=== PATIENT | female | born 1955 | race Caucasian/White ===

== ENCOUNTER 2017-08-09 10:10 | Observation (INO) | payer OTHER ==
[~2017-08-09] VITALS: Ht 162.6 cm; Wt 65.6 kg
[2017-08-09] VITALS (10 sets, daily range): BP systolic 127–176; BP diastolic 65–87
[2017-08-09] MEDS ORDERED: RT-ALBUTEROL/IPRATROPIUM 3 ML (DUONEB) VIAL INH ONE (10:30)
[2017-08-09 10:52] LABS: BASOPHILS # (AUTO) 0.1 10^3/uL (0.0-0.1); BASOPHILS % (AUTO) 1 % (0-10); EOSINOPHILS # (AUTO) 0.3 10^3/uL (0.0-0.3); EOSINOPHILS % (AUTO) 2 % (0-10); HEMATOCRIT 42 % (35-52); HEMOGLOBIN 14.2 G/DL (11.5-16.0); LYMPHOCYTES # (AUTO) 2.7 X 10^3 (1.0-4.0); LYMPHOCYTES % (AUTO) 26 % (12-44); MEAN CORPUSCULAR HEMOGLOBIN 30 PG (25-34); MEAN CORPUSCULAR HGB CONC 34 G/DL (32-36); MEAN CORPUSCULAR VOLUME 88 FL (80-99); MEAN PLATELET VOLUME 11.2 FL (7.4-10.4); MONOCYTES # (AUTO) 0.9 X 10^3 (0.0-1.0); MONOCYTES % (AUTO) 9 % (0-12); NEUTROPHILS # (AUTO) 6.7 X 10^3 (1.8-7.8); NEUTROPHILS % (AUTO) 63 % (42-75); PLATELET COUNT 262 10^3/uL (130-400); RED BLOOD COUNT 4.81 10^6/uL (4.35-5.85); RED CELL DISTRIBUTION WIDTH 13.5 % (10.0-14.5); WHITE BLOOD COUNT 10.6 10^3/uL (4.3-11.0)
[2017-08-09] MEDS: NITROGLYCERIN 0.4 MG SL TABS BTL 25'S SL PRN ×5 (10:54→18:28)
--- NOTE | 2017-08-09 10:54 | Diagnostic Imaging Report ---
INDICATION: Chest pain Frontal chest obtained at 1048 hrs am. Heart and mediastinal silhouette are normal in appearance. The lungs are clear. There is no pneumothorax or pleural fluid. IMPRESSION: Negative chest. Dictated by: Dictated on workstation # [id number]
[2017-08-09 11:12] LABS: ALANINE AMINOTRANSFERASE 61 U/L (0-55); ALBUMIN 4.2 GM/DL (3.2-4.5); ALKALINE PHOSPHATASE 111 U/L (40-136); BILIRUBIN,TOTAL 0.5 MG/DL (0.1-1.0); BUN/CREATININE RATIO 11; CALCIUM 10.6 MG/DL (8.5-10.1); CARBON DIOXIDE 23 MMOL/L (21-32); CHLORIDE 105 MMOL/L (98-107); CREATININE SERUM 0.88 MG/DL (0.60-1.30); GFR ESTIMATED > 60; GLUCOSE 103 MG/DL (70-105); POTASSIUM 4.8 MMOL/L (3.6-5.0); SODIUM 138 MMOL/L (135-145); TOTAL PROTEIN 7.6 GM/DL (6.4-8.2)
[2017-08-09 11:19] LABS: MYOGLOBIN SERUM 48.5 NG/ML (10.0-92.0)
--- NOTE | 2017-08-09 11:42 | ED Chest Pain ---
General Chief Complaint: Chest Pain Stated Complaint: CP Nursing Triage Note: Pt to ED via [facility]. Pt c/o chest pressure and heaviness x2 days. Pt also c/o SOA Nursing Sepsis Screen: No Definite Risk Source: patient, old records Exam Limitations: no limitations History of Present Illness Date Seen by Provider: Aug 09, 2017 Time Seen by Provider: 10:11 Initial Comments This 62-year-old woman presents to the emergency room via EMS with complaints of chest pain described as a heaviness or pressure. She rates the pain as a 5 or 6. Pain has been fairly constant over the last 2 days. It does change a little bit with position and is worse when she is completely upright were completely flat. She has no documented history of cardiac workup at this facility. She reports a prior cardiac workup elsewhere about 7 years ago. Patient does have smoking as a risk factor. She sees Phyllis Hernandez at [facility]. She has a little shortness of breath and is noted to have a subtle wheeze. Aspirin 324 mg was administered by EMS. She is noted to have a history of esophagitis and gastritis diagnosed by EGD performed by Dr. Encarnacion. Allergies and Home Medications Allergies Coded Allergies: No Known Drug Allergies (Unverified , 09/08/15) Patient Home Medication List Home Medication List Reviewed: Yes Review of Systems Constitutional: no symptoms reported EENTM: No Symptoms Reported Respiratory: See HPI Cardiovascular: See HPI Gastrointestinal: No Symptoms Reported Genitourinary: No Symptoms Reported Musculoskeletal: no symptoms reported Skin: no symptoms reported Psychiatric/Neurological: No Symptoms Reported Endocrine: No Symptoms Reported Hematologic/Lymphatic: No Symptoms Reported Past Nnoabev-Czcpuu-Qifpgz Hx Patient Social History Alcohol Use: Denies Use Recreational Drug Use: No Smoking Status: Current Everyday Smoker Type Used: Cigarettes Recent Foreign Travel: No Contact w/Someone Who Travel: No Recent Infectious Disease Expo: No Recent Hopitalizations: No Seasonal Allergies Seasonal Allergies: No Past Medical History Surgeries: Yes Abdominal (EGD), Appendectomy, Gallbladder, Hysterectomy, Orthopedic, Tubal Ligation Respiratory: Yes COPD Cardiac: Yes High Cholesterol, Hypertension Neurological: No Genitourinary: No Gastrointestinal: Yes (erosive gastritis and esophagitis) Esophagitis Musculoskeletal: No Diabetes, Non-Insulin dep HEENT: No Hearing Impairment: Bilateral Hearing Aide Cancer: No Psychosocial: No Integumentary: No Blood Disorders: No Physical Exam Vital Signs Vital Signs - First Documented 08/09/17 10:18 Temp 97.4 Pulse 78 Resp 18 B/P (MAP) 171/91 (117) Pulse Ox 99 O2 Delivery Room Air Capillary Refill : Less Than 3 Seconds General Appearance: No Apparent Distress, WD/WN HEENT: PERRL/EOMI, Normal ENT Inspection, Other (bilateral hearing aid) Neck: Normal Inspection Respiratory: Chest Non Tender, No Accessory Muscle Use, No Respiratory Distress , Wheezing (subtle) Cardiovascular: Regular Rate, Rhythm, No Edema, No Murmur Gastrointestinal: Normal Bowel Sounds, Non Tender, Soft Extremity: Normal Capillary Refill, Normal Inspection, Non Tender, No Calf Tenderness, No Pedal Edema, Other (negative Negra) Neurologic/Psychiatric: Alert, Oriented x3, No Motor/Sensory Deficits, Normal Mood/Affect, city bailiff II-XII Norm as Tested Skin: Normal Color, Warm/Dry Progress/Results/Core Measures Lab Results Laboratory Tests Test 08/09/17 10:45 Range/Units White Blood Count 10.6 4.3-11.0 10^3/uL Red Blood Count 4.81 4.35-5.85 10^6/uL Hemoglobin 14.2 11.5-16.0 G/DL Hematocrit 42 35-52 % Mean Corpuscular Volume 88 80-99 FL Mean Corpuscular Hemoglobin 30 25-34 PG Mean Corpuscular Hemoglobin Concent 34 32-36 G/DL Red Cell Distribution Width 13.5 10.0-14.5 % Platelet Count 262 130-400 10^3/uL Mean Platelet Volume 11.2 H 7.4-10.4 FL Neutrophils (%) (Auto) 63 42-75 % Lymphocytes (%) (Auto) 26 12-44 % Monocytes (%) (Auto) 9 0-12 % Eosinophils (%) (Auto) 2 0-10 % Basophils (%) (Auto) 1 0-10 % Neutrophils # (Auto) 6.7 1.8-7.8 X 10^3 Lymphocytes # (Auto) 2.7 1.0-4.0 X 10^3 Monocytes # (Auto) 0.9 0.0-1.0 X 10^3 Eosinophils # (Auto) 0.3 0.0-0.3 10^3/uL Basophils # (Auto) 0.1 0.0-0.1 10^3/uL Prothrombin Time 13.0 12.2-14.7 SEC INR Comment 1.0 0.8-1.4 Activated Partial Thromboplast Time 31 24-35 SEC Sodium Level 138 135-145 MMOL/L Potassium Level 4.8 3.6-5.0 MMOL/L Chloride Level 105 98-107 MMOL/L Carbon Dioxide Level 23 21-32 MMOL/L Anion Gap 10 5-14 MMOL/L Blood Urea Nitrogen 10 7-18 MG/DL Creatinine 0.88 0.60-1.30 MG/DL Estimat Glomerular Filtration Rate > 60 BUN/Creatinine Ratio 11 Glucose Level 103 70-105 MG/DL Calcium Level 10.6 H 8.5-10.1 MG/DL Magnesium Level 2.0 1.8-2.4 MG/DL Total Bilirubin 0.5 0.1-1.0 MG/DL Aspartate Amino Transf (AST/SGOT) 65 H 5-34 U/L Alanine Aminotransferase (ALT/SGPT) 61 H 0-55 U/L Alkaline Phosphatase 111 40-136 U/L Myoglobin 48.5 10.0-92.0 NG/ML Troponin I < 0.30 <0.30 NG/ML Total Protein 7.6 6.4-8.2 GM/DL Albumin 4.2 3.2-4.5 GM/DL My Orders Orders - RUTH LOERA MD Cbc With Automated Diff (08/09/17 10:23) Magnesium (08/09/17 10:23) Chest 1 View, Ap/Pa Only (08/09/17 10:23) Cardiac Profile 1 (08/09/17 10:23) Comprehensive Metabolic Panel (08/09/17 10:23) Myoglobin Serum (08/09/17 10:23) Protime With Inr (08/09/17 10:23) Partial Thromboplastin Time (08/09/17 10:23) O2 (08/09/17 10:23) Monitor-Rhythm Ecg Trace Only (08/09/17 10:23) Lipid Panel (08/10/17 06:00) Nitroglycerin 0.4 Mg Btl 25's (Nitrostat (08/09/17 10:30) Saline Lock/Iv-Start (08/09/17 10:23) Ekg Tracing (08/09/17 10:23) Albuterol/Ipra Inhalation Soln (Duoneb I (08/09/17 10:30) Svn Sm Volume Nebulizer Rt-Rfs (08/09/17 10:25) Medications Given in ED Current Medications Medications Dose Ordered Sig/Gary Route Start Time Stop Time Status Last Admin Dose Admin Albuterol/ Ipratropium 3 ml ONCE ONCE INH 08/09/17 10:30 08/09/17 10:31 DC 08/09/17 10:57 3 ML Nitroglycerin 0.4 mg UD PRN SL 08/09/17 10:30 08/09/17 11:41 DC 08/09/17 11:41 0.4 MG Vital Signs/I&O 08/09/17 08/09/17 08/09/17 10:18 10:48 10:59 Temp 97.4 Pulse 78 Resp 18 B/P (MAP) 171/91 (117) Pulse Ox 99 93 O2 Delivery Room Air Room Air Room Air Blood Pressure Mean: 117 Progress Note : Time: 11:21 Progress Note Patient reports improvement in her chest pain with both DuoNeb treatment and nitroglycerin. Pain is now rated as 1 or 2. Initial ECG Impression Date: Aug 09, 2017 Initial ECG Impression Time: 10:13 Initial ECG Rate: 81 Initial ECG Rhythm: Normal Sinus Initial ECG Intervals: Normal Initial ECG Impression: Normal Comment Normal sinus rhythm with no ST elevation or depression. No abnormal intervals or axis deviation. Diagonstic Imaging: Xray Plain Films/CT/US/NM/MRI: chest Comments Chest x-ray viewed by me and report reviewed. See report below: NAME: FELICITA ROBERTSON [facility] REC#: [id number] PT STATUS: REG ER : 1955 PHYSICIAN: RUTH LOERA MD ADMIT DATE: 08/09/17/ER Signed Date of Exam: 08/09/17 CHEST 1 VIEW, AP/PA ONLY INDICATION: Chest pain Frontal chest obtained at 1048 hrs am. Heart and mediastinal silhouette are normal in appearance. The lungs are clear. There is no pneumothorax or pleural fluid. IMPRESSION: Negative chest. Dictated by: Dictated on workstation # [id number] Dict: 08/09/17 1051 Trans: 08/09/17 1124 Interpreted by: AQUILINO CHOW MD Electronically signed by: AQUILINO CHOW MD 08/09/17 1124 Departure Communication (Admissions) Time/Spoke to Admitting Phy: 11:30 Dr. Pastor Time/Spoke to Consulting Phy: 11:30 Dr. Dow Impression Primary Impression: Chest pain Qualified Codes: R07.9 - Chest pain, unspecified Additional Impression: Bronchospasm Disposition: 01 HOME, SELF-CARE Condition: Improved Admissions Decision to Admit Reason: Admit from ER (General) Decision to Admit/Date: Aug 09, 2017 Time/Decision to Admit Time: 11:30 Departure-Patient Inst. Referrals: [facility] (PCP[facility]Family) Primary Care Physician RUTH LOERA MD Aug 09, 2017 11:42
--- OUTSIDE RECORDS SUMMARY | 2017-08-09 12:12 | XMS REPORT ---
Author Author VIVI GRANADOS [facility] e[employer] Address Unknown Phone Unavailable Care Team Providers Care Warehouse Traffic Supervisor Name Role Phone VIVI GRANADOS CP Unavailable Allergies No Known Allergies Problems Problem Type Condition Code Onset Dates Condition Status Problem Multiple sclerosis G35 Active Problem Marijuana abuse F12.10 Active Problem Hypercholesterolemia E78.0 Active Problem Mucopurulent chronic bronchitis J41.1 Active Problem Chronic obstructive pulmonary disease, unspecified COPD type J44.9 Active Problem Type 2 diabetes mellitus with hyperglycemia E11.65 Active Problem Hypertension due to endocrine disorder I15.2 Active Problem Panic attacks F41.0 Active Problem Irritable bowel syndrome with diarrhea K58.0 Active Medications No Known Medications Results No Known Results Summary Purpose eClinicalWorks Submission
--- OUTSIDE RECORDS SUMMARY | 2017-08-09 12:12 | XMS REPORT ---
Author Author VIVI GRANADOS [facility] eClinicalWorks Address Unknown Phone Unavailable Care Team Providers Care Silk Printer Name Role Phone VIVI GRANADOS Unavailable Allergies No Known Allergies Problems Problem Type Condition Code Onset Dates Condition Status Problem Marijuana abuse F12.10 Active Problem Hypercholesterolemia [...]
--- OUTSIDE RECORDS SUMMARY | 2017-08-09 12:12 | XMS REPORT ---
Author Author VIVI GRANADOS [facility] eClinicalWorks Address Unknown Phone Unavailable Care Team Providers Care Bar Pilot Name Role Phone VIVI GRANADOS Unavailable Allergies [...]
--- OUTSIDE RECORDS SUMMARY | 2017-08-09 12:12 | XMS REPORT ---
Author Author VIVI GRANADOS [facility] eClinicalWorks Address Unknown Phone Unavailable Care Team Providers Care Merchandiser Seasonal Name Role Phone VIVI GRANADOS Unavailable Allergies [...] bowel syndrome with diarrhea K58.0 Active Medications Medication Code System Code Instructions Start Date End Date Status Dosage ProAir HFA [facility] [id number] 90 mcg/Actuation Inhalation 4 times a day May 16, 2011 inhale 1 - 2 puffs by inhalation route every 6 hours as needed Results No Known Results Summary Purpose eClinicalWorks Submission
--- OUTSIDE RECORDS SUMMARY | 2017-08-09 12:12 | XMS REPORT ---
Author Author VIVI GRANADOS [facility] eClinicalWorks Address Unknown Phone Unavailable Care Team Providers Care Director Software Name Role Phone VIVI GRANADOS CP Unavailable [...]
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
--- OUTSIDE RECORDS SUMMARY | 2017-08-09 12:12 | XMS REPORT ---
Author Author VIVI GRANADOS Organization [facility] Address [address] [place] [address] Care Team Providers Care Tv Host Name Role Phone GRANADOS VIVI Unavailable PROBLEMS Type Condition ICD9-CM Code [id number] Code Onset Dates Condition Status SNOMED Code Problem Hypertension due to endocrine disorder I15.2 Active 772461575 Problem Marijuana abuse F12.10 Active 03313083 Problem Chronic obstructive pulmonary disease, unspecified COPD type J44.9 Active 68497115 Problem Hypercholesterolemia E78.0 Active 18111923 Problem Irritable bowel syndrome with diarrhea K58.0 Active 409986496 Problem Type 2 diabetes mellitus with hyperglycemia E11.65 Active 563506154583929 Problem Mucopurulent chronic bronchitis J41.1 Active 09001576 Problem Panic attacks F41.0 Active 561005882 ALLERGIES Unknown Allergies SOCIAL HISTORY No smoking Hx information available PLAN OF CARE VITAL SIGNS MEDICATIONS Medication Instructions Dosage Frequency Start Date End Date Duration Status ProAir HFA 90 mcg/Actuation inhale 1 - 2 puffs by inhalation route every 6 hours as needed 6h Apr, 90 days Active RESULTS No Results PROCEDURES No Known procedures IMMUNIZATIONS No Known Immunizations
--- OUTSIDE RECORDS SUMMARY | 2017-08-09 12:12 | XMS REPORT ---
Author Author VIVI GRANADOS Organization [facility] Address [address] [place] [address] Care Team Providers Care Marketing Representative Name Role Phone NILA GRANADOSE Unavailable PROBLEMS Type Condition ICD9-CM Code HOR81-YT Code Onset Dates Condition Status SNOMED Code Problem Hypertension due to endocrine disorder I15.2 Active 980289521 Problem Marijuana abuse F12.10 Active 33224701 Problem Chronic obstructive pulmonary disease, unspecified COPD type J44.9 Active 54361947 Problem Hypercholesterolemia E78.0 Active 88124846 Problem Irritable bowel syndrome with diarrhea K58.0 Active 113163994 Problem Type 2 diabetes mellitus with hyperglycemia E11.65 Active 286660303180336 Problem Mucopurulent chronic bronchitis J41.1 Active 77038580 Problem Panic attacks F41.0 Active 540386012 ALLERGIES Unknown Allergies SOCIAL HISTORY No smoking Hx information available PLAN OF CARE VITAL SIGNS MEDICATIONS Medication Instructions Dosage Frequency Start Date End Date Duration Status MetFORMIN HCl ER 500 MG Orally twice a day with food 2 tablet August, Active Test strips Test Strips DX E11.65- Glucocard Expression 2 times a day- 3 times weekly. test blood sugar Dec, Active Blood Glucose Meter 1 glucometer Glucocard Expression 2 times a day test blood sugar 12h Dec, Active RESULTS No Results PROCEDURES No Known procedures IMMUNIZATIONS No Known Immunizations
--- OUTSIDE RECORDS SUMMARY | 2017-08-09 12:13 | XMS REPORT ---
Author Author VIVI GRANADOS [facility] Address [address] [place] [address] Care Team Providers Care Reliner Name Role Phone VIVI GRANADOS Unavailable PROBLEMS Type Condition ICD9-CM Code HLT34-MQ Code Onset Dates Condition Status SNOMED Code Problem Marijuana abuse F12.10 Active 08605775 Problem Pure hypercholesterolemia E78.00 Active 767521882 Problem Chronic obstructive pulmonary disease, unspecified COPD type J44.9 Active 95706074 Problem Mucopurulent chronic bronchitis J41.1 Active 45634745 Problem Type 2 diabetes mellitus with hyperglycemia E11.65 Active 186790004113655 Problem Hypertension due to endocrine disorder I15.2 Active 647741170 Problem Panic attacks F41.0 Active 673382100 Problem Irritable bowel syndrome with diarrhea K58.0 Active 989268840 ALLERGIES Unknown Allergies SOCIAL HISTORY No smoking Hx information available PLAN OF CARE VITAL SIGNS MEDICATIONS Unknown Medications RESULTS No Results PROCEDURES No Known procedures IMMUNIZATIONS No Known Immunizations
--- OUTSIDE RECORDS SUMMARY | 2017-08-09 12:13 | XMS REPORT ---
Author Author VIVI GRANADOS Organization [facility] Address [address] [place] [address] Care Team Providers Care Time Study Statistician Name Role Phone VIVI GRANADOS Unavailable PROBLEMS Type Condition ICD9-CM Code ELS31-MV Code Onset Dates Condition Status SNOMED Code Problem Panic attacks F41.0 Active 474123554 Problem Pure hypercholesterolemia E78.00 Active 494268124 Problem Chronic obstructive pulmonary disease, unspecified COPD type J44.9 Active 23006300 Problem Hypertension due to endocrine disorder I15.2 Active 268992991 Problem Irritable bowel syndrome with diarrhea K58.0 Active 153147023 Problem Marijuana abuse F12.10 Active 63930037 Problem Type 2 diabetes mellitus with hyperglycemia E11.65 Active 813945872502938 Problem Mucopurulent chronic bronchitis J41.1 Active 28162911 ALLERGIES No Information SOCIAL HISTORY Never Assessed PLAN OF CARE VITAL SIGNS MEDICATIONS Medication Instructions Dosage Frequency Start Date End Date Duration Status Glucocard Expression Test - In Vitro 2 times a day test blood sugar 12h 10 May, 2016 30 days Active RESULTS No Results PROCEDURES No Known procedures IMMUNIZATIONS No Known Immunizations MEDICAL (GENERAL) HISTORY [...]
--- OUTSIDE RECORDS SUMMARY | 2017-08-09 12:13 | XMS REPORT ---
Author Author VIVI Simms Organization [facility] Address [address] [place] [address] Care Team Providers Care Electrical Drafter Name Role Phone pearlFina VIVI Unavailable PROBLEMS Type Condition ICD9-CM Code MHM67-HZ Code Onset Dates Condition Status SNOMED Code Problem Pure hypercholesterolemia E78.00 Active 106775953 Problem Irritable bowel syndrome with diarrhea K58.0 Active 610216964 Problem Vitamin D deficiency E55.9 Active 29069761 Problem Chronic fatigue R53.82 Active 80188046 Problem Overweight (BMI 25.0-29.9) E66.3 Active 926556553 Problem Panic attacks F41.0 Active 695282801 Problem Type 2 diabetes mellitus with hyperglycemia E11.65 Active 891277847866091 Problem Chronic obstructive pulmonary disease, unspecified COPD type J44.9 Active 28871495 Problem Hypertension due to endocrine disorder I15.2 Active 439262804 ALLERGIES No Information ENCOUNTERS Encounter Location Date Diagnosis [place] [id number] [address] Jun, Chronic obstructive pulmonary disease, unspecified COPD type J44.9 [place] [address] [place] [id number] [place] [address] May, [place] [address] [address] May, Type 2 diabetes mellitus with hyperglycemia E11.65 [place] [address] [address] May, Type 2 diabetes mellitus with hyperglycemia E11.65 ; Hypertension due to endocrine disorder I15.2 ; Pure hypercholesterolemia E78.00 ; Irritable bowel syndrome with diarrhea K58.0 ; Panic attacks F41.0 ; Hair loss L65.9 ; Chronic fatigue R53.82 ; Overweight (BMI 25.0-29.9) E66.3 and Chronic obstructive pulmonary disease, unspecified COPD type J44.9 [facility] [address] [id number] [place] [address] Nov, Chronic obstructive pulmonary disease, unspecified COPD type J44.9 [facility] [address] [place] [id number] [address] Nov, [facility] [address] [id number] [place] [address] Oct, [facility] [address] [place] [id number] [place] [address] Oct, [facility] [address] [place] [id number] [place] [address] Sep, Chronic obstructive pulmonary disease, unspecified COPD type J44.9 [facility] [address] [id number] [place] [address] Jul, Vaginal discharge N89.8 [facility] [address] [id number] [place] [address] Jul, Chronic obstructive pulmonary disease, unspecified COPD type J44.9 [facility] [address] [place] [id number] [address] Jun, [facility] [address] [place] [id number] [place] [address] 10 May, 2016 Type 2 diabetes mellitus with hyperglycemia E11.65 [facility] [address] [place] [address] 08 May, 2016 Type 2 diabetes mellitus with hyperglycemia E11.65 ; Irritable bowel syndrome with diarrhea K58.0 ; Hypertension due to endocrine disorder I15.2 ; Hypercholesterolemia E78.0 ; Panic attacks F41.0 and Chronic obstructive pulmonary disease, unspecified COPD type J44.9 [facility] [address] [address] Apr, [facility] [address] [address] Mar, [facility] [address] [address] [id number] [place] [address] Mar, [facility] [address] [place] [id number] [place] [address] 488[address] Feb, Panic attacks F41.0 ; Chronic obstructive pulmonary disease , unspecified COPD type J44.9 ; Hypertension due to endocrine disorder I15.2 ; Hypercholesterolemia E78.0 ; Type 2 diabetes mellitus with hyperglycemia E11.65 and Rash and nonspecific skin eruption R21 [facility] [address] [place] [id number] [place] [address] Feb, [facility] [address] [place] [id number] [place] [address]- 6035 Dec, [facility] [address] [id number] [place] [address] 2720 Dec, [facility] [address] [id number] [place] [address] 78[address]- 3647 Dec, [facility] [address] [place] [id number] [place] [address] Nov, [facility] [address] [place] [id number] [place] [address] Nov, Type 2 diabetes mellitus with hyperglycemia E11.65 ; Hypertension due to endocrine disorder I15.2 ; Chronic obstructive pulmonary disease, unspecified COPD type J44.9 ; Panic attacks F41.0 ; Hypercholesterolemia E78.0 ; Irritable bowel syndrome with diarrhea K58.0 and Encounter for immunization Z23 [facility] [address] [place] [id number] [place] [address] Nov, [facility] [address] [place] [id number] [place] [address] Oct, [facility] [address] [place] [id number] [place] [address]99[address] Oct, Type 2 diabetes mellitus with hyperglycemia E11.65 ; Hypertension due to endocrine disorder I15.2 ; Hypercholesterolemia E78.0 and Chronic obstructive pulmonary disease, unspecified COPD type J44.9 [facility] [address] [place] [id number] [place] [address] Oct, [facility] [address] [place] [id number] [place] [address] 9367 Sep, [facility] [address] [place] [id number] [place] [address] 6759 Sep, Type 2 diabetes mellitus with hyperglycemia E11.65 ; Hypertension due to endocrine disorder I15.2 ; Multiple sclerosis G35 ; Chronic obstructive pulmonary disease, unspecified COPD type J44.9 ; Marijuana abuse F12.10 and Hypercholesterolemia E78.0 [place] [address] [address] [id number] [place] [address] August, [place] [address] [place] [id number] [place] [address] August, [facility] [address] [place] [id number] [place] [address] 10075- 0209 August, Hypercholesterolemia E78.0 [place] [address] [place] [id number] [place] [address] August, Type 2 diabetes mellitus with hyperglycemia E11.65 ; Hypertension due to endocrine disorder I15.2 ; Mucopurulent chronic bronchitis J41.1 ; Multiple sclerosis G35 and Marijuana abuse F12.10 [place] [address] [place] [address]16- [address] Nov, Shoulder pain, right 719.41 and Upper back pain on right side 724.5 [place] [address] [place] [id number] [place] [address] Jul, [facility] [address] [place] [id number] [place] [address]- 8399 Jul, [place] [address] [place] [id number] [place] [address] Dec, [facility] [place] [facility] [address] [id number] [place] [address] Dec, [facility] [place] [facility] [address] [id number] [place] [address]- 3[address] Nov, [facility] [place] [facility] [address] [id number] [place] [address]- 477[address] Nov, [facility] [place] [facility] [address] [id number] [place] [address]- 6656 Oct, [facility] [place] [facility] [address] [id number] [place] [address]- 3418 Oct, [facility] [place] [facility] [address] [id number] [place] [address]- 7898 Oct, [facility] [place] [facility] [address] [id number] [place] [address]- 6[address] Oct, [facility] [place] [facility] [address] [id number] [place] [address]- 1267 Oct, [facility] [place] [facility] [address] [id number] [place] [address]- 5567 Oct, [facility] [place] [facility] [address] [id number] [place] [address]- 1[address] Sep, [facility] [place] [facility] [address] [id number] [place] [address]- 4086 Sep, [facility] [place] [facility] [address] [id number] [address] Sep, [facility] [place] [facility] [address] [id number] [place] [address]- 224[address] Sep, [facility] [place] [facility] [address] [id number] [place] [address]- 18[address] Jan, [facility] [place] [facility] [address] [id number] [place] [address]- 6[address] Jan, [facility] [place] [facility] [address] [id number] [place] [address]- 2871 Jan, [facility] [address] [id number] [place] [address]- 6[address] Dec, [facility] [place] [facility] [address] [id number] [place] [address]- 9466 Dec, [facility] [address] [id number] [place] [address]- 3973 August, [facility] [place] [facility] [address] [id number] [place] [address]- 5932 Apr, [facility] [address] [id number] [place] [address]- 2643 Apr, [facility] [address] [id number] [place] [address]- 7535 Nov, [facility] [address] [id number] [place] [address]- 1489 Sep, [facility] [place] [facility] [address] [id number] [place] [address]- 2476 Sep, [facility] [place] [facility] [address] [id number] [place] [address]- 3596 Sep, [facility] [address] [id number] [place] [address]- 2194 Sep, [facility] [place] [facility] [address] [id number] [place] [address]- 4050 Jul, [facility] [place] [facility] [address] [id number] [place] [address]- 9937 Jul, [facility] [place] [facility] [address] [id number] [place] [address]- 4175 Jul, [facility] [place] [facility] [address] [id number] [place] [address]- 6470 Jun, [facility] [place] [facility] [address] [id number] [place] [address]- 0697 Jun, [facility] [address] [facility] [id number] [address] Jun, [facility] [address] [facility] [id number] [address]- [address] Jun, [facility] [address] [facility] [id number] [address]- 38[address] May, [facility] [address] [facility] [id number] [address]- [address] Apr, [facility] [address] [facility] [id number] [address]- [address] Apr, [facility] [address] [facility] [id number] [address]- 39[address] Apr, [facility] [address] [address]- [address] Mar, [facility] [address] [address]- [address] Jan, [facility] [address] [place] [id number] [address] Jan, [facility] [address] [place] [address] [id number] [address] Jan, IMMUNIZATIONS No Known Immunizations SOCIAL HISTORY Never Assessed REASON FOR VISIT Refill request PLAN OF CARE VITAL SIGNS MEDICATIONS Medication Instructions Dosage Frequency Start Date End Date Duration Status Lisinopril 10 MG Orally Once a day 1 tablet 24h 30 days Active RESULTS No Results PROCEDURES [...]
--- OUTSIDE RECORDS SUMMARY | 2017-08-09 12:13 | XMS REPORT ---
Author Author VIVI GRANADOS [facility] Address [address] [place] [address] Care Team Providers Care Tailor Men'S Ready To Wear Name Role Phone VIVI GRANADOS Unavailable PROBLEMS Type Condition ICD9-CM Code OBE02-FH Code Onset Dates Condition Status SNOMED Code Problem Panic attacks F41.0 Active 326832246 Problem Pure hypercholesterolemia E78.00 Active 196759519 Problem Chronic obstructive pulmonary disease, unspecified COPD type J44.9 Active 61385337 Problem Hypertension due to endocrine disorder I15.2 Active 357131154 Problem Irritable bowel syndrome with diarrhea K58.0 Active 711422757 Problem Marijuana abuse F12.10 Active 21682401 Problem Type 2 diabetes mellitus with hyperglycemia E11.65 Active 026880662896089 Problem Mucopurulent chronic bronchitis J41.1 Active 06117643 ALLERGIES Unknown Allergies SOCIAL HISTORY No smoking Hx information available PLAN OF CARE VITAL SIGNS MEDICATIONS Unknown Medications RESULTS No Results PROCEDURES No Known procedures IMMUNIZATIONS No Known Immunizations
--- OUTSIDE RECORDS SUMMARY | 2017-08-09 12:13 | XMS REPORT ---
Author Author VIVI Simms Organization [facility] Address [address] [place] [address] Care Team Providers Care Fingernail Sculptor Name Role Phone pearlFina VIVI Unavailable PROBLEMS Type Condition ICD9-CM Code ZRY65-XY Code Onset Dates Condition Status SNOMED Code Problem Pure hypercholesterolemia E78.00 Active 904716712 Problem Irritable bowel syndrome with diarrhea K58.0 Active 189823729 Problem Vitamin D deficiency E55.9 Active 80577909 Problem Chronic fatigue R53.82 Active 85721277 Problem Overweight (BMI 25.0-29.9) E66.3 Active 918781464 Problem Panic attacks F41.0 Active 414858380 Problem Type 2 diabetes mellitus with hyperglycemia E11.65 Active [id number] Problem Chronic obstructive pulmonary disease, unspecified COPD type J44.9 Active 85115819 Problem Hypertension due to endocrine disorder I15.2 Active 200634047 ALLERGIES No Information ENCOUNTERS Encounter Location Date Diagnosis [place] [id number] [address] Jun, Chronic obstructive pulmonary disease, unspecified COPD type J44.9 [place] [address] [place] [id number] [place] [address]342- 1086 May, [place] [address] [address] May, Type 2 diabetes mellitus with hyperglycemia E11.65 [place] [address] [address] May, Type 2 diabetes mellitus with hyperglycemia E11.65 ; Hypertension due to endocrine disorder I15.2 ; Pure hypercholesterolemia E78.00 ; Irritable bowel syndrome with diarrhea K58.0 ; Panic attacks F41.0 ; Hair loss L65.9 ; Chronic fatigue R53.82 ; Overweight (BMI 25.0-29.9) E66.3 and Chronic obstructive pulmonary disease, unspecified COPD type J44.9 [facility] [address] [id number] [place] [address]45- 3186 Nov, Chronic obstructive pulmonary disease, unspecified COPD type J44.9 [facility] [id number] [address] Nov, [facility] [address] [id number] [place] [address] 56676- 3779 Oct, [facility] [address] [place] [id number] [place] [address] 62657- 7112 Oct, [facility] [address] [place] [id number] [place] [address] 51862- 8388 Sep, Chronic obstructive pulmonary disease, unspecified COPD type J44.9 [facility] [address] [place] [id number] [place] [address] 60475- 9586 Jul, Vaginal discharge N89.8 [facility] [address] [place] [id number] [place] [address] 33844- 5455 Jul, Chronic obstructive pulmonary disease, unspecified COPD type J44.9 [facility] [address] [place] [address] [id number] [address] Jun, [facility] [address] [place] [id number] [place] [address] 36427- 7500 10 May, 2016 Type 2 diabetes mellitus with hyperglycemia E11.65 [facility] [id number] [place] [address] 90991- 5018 08 May, 2016 Type 2 diabetes mellitus with hyperglycemia E11.65 ; Irritable bowel syndrome with diarrhea K58.0 ; Hypertension due to endocrine disorder I15.2 ; Hypercholesterolemia E78.0 ; Panic attacks F41.0 and Chronic obstructive pulmonary disease, unspecified COPD type J44.9 [facility] [address] [address] Apr, [facility] [address] [address] Mar, [facility] [address] [place] [id number] [place] [address] 25474- 9589 Mar, [facility] [address] [place] [address] [id number] [place] [address] 00741- 3060 Feb, Panic attacks F41.0 ; Chronic obstructive pulmonary disease , unspecified COPD type J44.9 ; Hypertension due to endocrine disorder I15.2 ; Hypercholesterolemia E78.0 ; Type 2 diabetes mellitus with hyperglycemia E11.65 and Rash and nonspecific skin eruption R21 [facility] [address] [place] [id number] [place] [address] 23915- 0017 Feb, [facility] [address] [place] [id number] [place] [address] 25595- 8607 Dec, [facility] [address] [place] [id number] [place] [address] 41171- 1011 Dec, [facility] [address] [place] [id number] [place] [address] 19371- 3030 Dec, [facility] [address] [place] [id number] [place] [address] 46971- 2028 Nov, [facility] [address] [place] [id number] [place] [address] 39896- 3550 Nov, Type 2 diabetes mellitus with hyperglycemia E11.65 ; Hypertension due to endocrine disorder I15.2 ; Chronic obstructive pulmonary disease, unspecified COPD type J44.9 ; Panic attacks F41.0 ; Hypercholesterolemia E78.0 ; Irritable bowel syndrome with diarrhea K58.0 and Encounter for immunization Z23 [facility] [address] [place] [id number] [place] [address] 18328- 3621 Nov, [facility] [address] [place] [id number] [place] [address] 65250- 6658 Oct, [facility] [address] [place] [id number] [place] [address] 95447- 7580 Oct, Type 2 diabetes mellitus with hyperglycemia E11.65 ; Hypertension due to endocrine disorder I15.2 ; Hypercholesterolemia E78.0 and Chronic obstructive pulmonary disease, unspecified COPD type J44.9 [facility] [address] [place] [id number] [place] [address] 26747- 8465 Oct, [facility] [address] [place] [id number] [place] [address] 94196- 4280 Sep, [facility] [address] [place] [id number] [place] [address] 24212- 8270 Sep, Type 2 diabetes mellitus with hyperglycemia E11.65 ; Hypertension due to endocrine disorder I15.2 ; Multiple sclerosis G35 ; Chronic obstructive pulmonary disease, unspecified COPD type J44.9 ; Marijuana abuse F12.10 and Hypercholesterolemia E78.0 [place] [address] [place] [id number] [place] [address] 99265- 7057 August, [place] [address] [place] [id number] [place] [address] 88607- 0139 August, [facility] [address] [place] [id number] [place] [address] 10381- 1872 August, Hypercholesterolemia E78.0 [place] [address] [place] [id number] [place] [address] 27148- 6021 August, Type 2 diabetes mellitus with hyperglycemia E11.65 ; Hypertension due to endocrine disorder I15.2 ; Mucopurulent chronic bronchitis J41.1 ; Multiple sclerosis G35 and Marijuana abuse F12.10 [place] [address] [place] [address] 01887- 9156 Nov, Shoulder pain, right 719.41 and Upper back pain on right side 724.5 [place] [address] [place] [id number] [place] [address] 52583- 5657 Jul, [facility] [address] [place] [id number] [place] [address] 44428- 8318 Jul, [place] [address] [place] [id number] [place] [address] 07327- 2561 Dec, [facility] [place] [facility] [address] [id number] [place] [address]- 7540 Dec, [facility] [place] [facility] [address] [id number] [place] [address]- 9214 Nov, [facility] [place] [facility] [address] [id number] [place] [address]- 7647 Nov, [facility] [place] [facility] [address] [id number] [place] [address]- 0603 Oct, [facility] [place] [facility] [address] [id number] [place] [address]- 9818 Oct, [facility] [place] [facility] [address] [id number] [place] [address]- 6884 Oct, [facility] [place] [facility] [address] [id number] [place] [address]- 1058 Oct, [facility] [place] [facility] [address] [id number] [place] [address]- 4823 Oct, [facility] [place] [facility] [address] [id number] [place] [address]- 0938 Oct, [facility] [place] [facility] [address] [id number] [place] [address]- 4920 Sep, [facility] [place] [facility] [address] [id number] [place] [address]- 2572 Sep, [facility] [place] [facility] [address] [id number] [address]- 2138 Sep, [facility] [place] [facility] [address] [id number] [place] [address]- 7197 Sep, [facility] [place] [facility] [address] [id number] [place] [address]- 1360 Jan, [facility] [place] [facility] [address] [id number] [place] [address]- 8369 Jan, [facility] [place] [facility] [address] [id number] [place] [address]- 7892 Jan, [facility] [address] [id number] [place] [address]- 1284 Dec, [facility] [place] [facility] [address] [id number] [place] [address]- 0786 Dec, [facility] [address] [id number] [place] [address]- 7478 August, [facility] [place] [facility] [address] [id number] [place] [address]- 7566 Apr, [facility] [address] [id number] [place] [address]- 7583 Apr, [facility] [address] [id number] [place] [address]- 5232 Nov, [facility] [address] [id number] [place] [address]- 4437 Sep, [facility] [place] [facility] [address] [id number] [place] [address]- 6203 Sep, [facility] [place] [facility] [address] [id number] [place] [address]- 5553 Sep, [facility] [address] [id number] [place] [address]- 5517 Sep, [facility] [place] [facility] [address] [id number] [place] [address]- 5195 Jul, [facility] [place] [facility] [address] [id number] [place] [address]- 5147 Jul, [facility] [place] [facility] [address] [id number] [place] [address]- 0597 Jul, [facility] [place] [facility] [address] [id number] [place] [address]- 4222 Jun, [facility] [place] [facility] [address] [id number] [place] [address]- 3787 Jun, [facility] [address] [facility] [id number] [address]- 8702 Jun, [facility] [address] [facility] [id number] [address]- 5185 Jun, [facility] [address] [facility] [id number] [address]- 5956 May, [facility] [address] [address]- 8755 Apr, [facility] [address] [facility] [id number] [address]- 9834 Apr, [facility] [address] [address]- 0913 Apr, [facility] [address] [address]- 9104 Mar, [facility] [address] [address]- 5162 Jan, [facility] [address] [place] [id number] [address]- 5632 Jan, [facility] [address] [place] [id number] [address]- [address]117 Jan, IMMUNIZATIONS No Known Immunizations SOCIAL HISTORY Never Assessed REASON FOR VISIT 1 yr f/u DM Ed PLAN OF CARE VITAL SIGNS MEDICATIONS Unknown [...]
--- OUTSIDE RECORDS SUMMARY | 2017-08-09 12:13 | XMS REPORT ---
Author Author VIVI GRANADOS Organization [facility] Address [address] [place] [address] Care Team Providers Care Milling Machine Tender Name Role Phone GRANADOS VIVI Unavailable PROBLEMS Type Condition ICD9-CM Code NOZ57-PS Code Onset Dates Condition Status SNOMED Code Problem Hypertension due to endocrine disorder I15.2 Active 460709577 Problem Marijuana abuse F12.10 Active 11856465 Problem Chronic obstructive pulmonary disease, unspecified COPD type J44.9 Active 65961714 Problem Hypercholesterolemia E78.0 Active 33806189 Problem Irritable bowel syndrome with diarrhea K58.0 Active 167721052 Problem Type 2 diabetes mellitus with hyperglycemia E11.65 Active 347400096110660 Problem Mucopurulent chronic bronchitis J41.1 Active 71218584 Problem Panic attacks F41.0 Active 649155782 ALLERGIES Unknown Allergies SOCIAL HISTORY No smoking [...]
--- OUTSIDE RECORDS SUMMARY | 2017-08-09 12:13 | XMS REPORT ---
Author Author VIVI GRANADOS [facility] Address [address] [place] [address] Care Team Providers Care Fiberglass Boat Builder Name Role Phone VIVI GRANADOS Unavailable PROBLEMS Type Condition ICD9-CM Code OMZ25-YZ Code Onset Dates Condition Status SNOMED Code Problem Panic attacks F41.0 Active 010727327 Problem Pure hypercholesterolemia E78.00 Active 201491704 Problem Chronic obstructive pulmonary disease, unspecified COPD type J44.9 Active 88389006 Problem Hypertension due to endocrine disorder I15.2 Active 989671252 Problem Irritable bowel syndrome with diarrhea K58.0 Active 733414396 Problem Marijuana abuse F12.10 Active 65736882 Problem Type 2 diabetes mellitus with hyperglycemia E11.65 Active 496785133157125 Problem Mucopurulent chronic bronchitis J41.1 Active 44327851 ALLERGIES No Information SOCIAL HISTORY Never Assessed PLAN OF CARE VITAL SIGNS MEDICATIONS Unknown [...]
--- OUTSIDE RECORDS SUMMARY | 2017-08-09 12:13 | XMS REPORT ---
Author Author VIVI GRANADOS [facility] e[employer] Address Unknown Phone Unavailable Care Team Providers Care General Scrap Worker Name Role Phone VIVI GRANADOS CP Unavailable Allergies, Adverse Reactions, Alerts Substance Reaction Event Type N.K.D.A. Info Not Available Non Drug Allergy Problems Problem Type Condition Code Onset Dates Condition Status Assessment Hypertension due to endocrine disorder I15.2 Active Problem Marijuana abuse F12.10 Active Assessment Type 2 diabetes mellitus with hyperglycemia E11.65 Active Problem Hypercholesterolemia E78.0 Active Problem Mucopurulent chronic bronchitis J41.1 Active Problem Chronic obstructive pulmonary disease, unspecified COPD type J44.9 Active Problem Type 2 diabetes mellitus with hyperglycemia E11.65 Active Problem Hypertension due to endocrine disorder I15.2 Active Problem Panic attacks F41.0 Active Problem Irritable bowel syndrome with diarrhea K58.0 Active Assessment Irritable bowel syndrome with diarrhea K58.0 Active Assessment Hypercholesterolemia E78.0 Active Assessment Panic attacks F41.0 Active Assessment Encounter for immunization Z23 Active Assessment Chronic obstructive pulmonary disease, unspecified COPD type J44.9 Active Medications Medication Code System Code Instructions Start Date End Date Status Dosage Albuterol Sulfate HFA [facility] [address]-45 108 (90 Base) MCG/ACT Inhalation every 4 hrs September 02, 2015 2 puffs as needed ProAir HFA [facility] [address]-89 90 mcg/Actuation May 16, 2011 inhale 1 - 2 puffs by inhalation route every 6 hours as needed Clonidine HCl [facility] [address]-61 0.1 MG Orally twice a day Dec 14, 2015 1 tablet MetFORMIN HCl ER [facility] [address]-10 500 MG Orally twice a day September 02, 2015 1 tablet with evening meal Lisinopril [facility] [address]-18 10 mg Orally Once a day September 02, 2015 1 tablet Lipitor [facility] [address]-64 10 mg Orally Once a day September 03, 2015 1 tablet Procedures Procedure Coding System Code Date Office Visit, Est Pt., Level 4 CPT-4 04795 Dec 14, 2015 PPV23 (PNEUMOVAX) CPT-4 22412 Dec 14, 2015 GLYCATED HEMOGLOBIN TEST CPT-4 14604 Dec 14, 2015 SINGLE IMMUNIZATION ADMIN CPT-4 38788 Dec 14, 2015 Vital Signs Date/Time: Dec 14, 2015 Cardiac Monitoring Heart Rate 96 bpm Weight 140.1 lbs Height 61 in BMI 26.47 Index Blood Pressure Diastolic 92 mmHg Blood Pressure Systolic 156 mmHg Results No Known Results Immunizations Vaccine Administration Date PPV23 (PNEUMOVAX) Dec 14, 2015 Summary Purpose eClinicalWorks Submission
--- OUTSIDE RECORDS SUMMARY | 2017-08-09 12:13 | XMS REPORT ---
Author Author VIVI GRANADOS Organization [facility] Address [address] [place] [address] Care Team Providers Care Pharmacy Buyer Name Role Phone TAVIA GRANADOSNETTE Unavailable PROBLEMS Type Condition ICD9-CM Code ZPR80-PT Code Onset Dates Condition Status SNOMED Code Problem Hypertension due to endocrine disorder I15.2 Active 436457760 Problem Marijuana abuse F12.10 Active 08152895 Problem Chronic obstructive pulmonary disease, unspecified COPD type J44.9 Active 36831081 Problem Hypercholesterolemia E78.0 Active 68893711 Problem Irritable bowel syndrome with diarrhea K58.0 Active 849395922 Problem Type 2 diabetes mellitus with hyperglycemia E11.65 Active 390630554544656 Problem Mucopurulent chronic bronchitis J41.1 Active 82098288 Problem Panic attacks F41.0 Active 375194843 ALLERGIES Unknown Allergies SOCIAL HISTORY No smoking Hx information available PLAN OF CARE VITAL SIGNS MEDICATIONS Medication Instructions Dosage Frequency Start Date End Date Duration Status Lisinopril 10 mg Orally Once a day 1 tablet 24h August, 30 days Active Clonidine HCl 0.1 MG Orally twice a day 1 tablet 12h Nov, 30 day(s) Active RESULTS No Results PROCEDURES No Known procedures IMMUNIZATIONS No Known Immunizations
--- OUTSIDE RECORDS SUMMARY | 2017-08-09 12:13 | XMS REPORT ---
Author Author VIVI GRANADOS [facility] e[employer] Address Unknown Phone Unavailable Care Team Providers Care Purification Director Name Role Phone VIVI GRANADOS Unavailable Allergies, Adverse Reactions, Alerts Substance Reaction Event Type N.K.D.A. Info Not Available Non Drug Allergy Problems Problem Type Condition Code Onset Dates Condition Status Assessment Type 2 diabetes mellitus with hyperglycemia E11.65 Active Problem Multiple sclerosis G35 Active Problem Marijuana abuse F12.10 Active Problem Hypercholesterolemia E78.0 Active Problem Mucopurulent chronic bronchitis J41.1 Active Problem Chronic obstructive pulmonary disease, unspecified COPD type J44.9 Active Problem Type 2 diabetes mellitus with hyperglycemia E11.65 Active Problem Hypertension due to endocrine disorder I15.2 Active Problem Panic attacks F41.0 Active Problem Irritable bowel syndrome with diarrhea K58.0 Active Assessment Chronic obstructive pulmonary disease, unspecified COPD type J44.9 Active Assessment Hypercholesterolemia E78.0 Active Assessment Hypertension due to endocrine disorder I15.2 Active Medications Medication Code System Code Instructions Start Date End Date Status Dosage Lipitor [facility] [address]-34 10 mg Orally Once a day September 03, 2015 1 tablet ProAir HFA [facility] [address]-60 90 mcg/Actuation May 16, 2011 inhale 1 - 2 puffs by inhalation route every 6 hours as needed MetFORMIN HCl ER [facility] [address]-07 500 MG Orally twice a day September 02, 2015 1 tablet with evening meal Albuterol Sulfate HFA [facility] [address]-76 108 (90 Base) MCG/ACT Inhalation every 4 hrs September 02, 2015 2 puffs as needed Lisinopril [facility] [address]-78 10 mg Orally Once a day September 02, 2015 1 tablet Procedures Procedure Coding System Code Date Office Visit, Est Pt., Level 4 CPT-4 64432 November 11, 2015 Vital Signs Date/Time: November 11, 2015 Cardiac Monitoring Heart Rate 96 bpm Weight 140.3 lbs Height 61 in Blood Pressure Diastolic 90 mmHg Blood Pressure Systolic 148 mmHg Results No Known Results Summary Purpose eClinicalWorks Submission
--- OUTSIDE RECORDS SUMMARY | 2017-08-09 12:14 | XMS REPORT | Continuity of Care Document ---
Author Author [facility] Address Unknown Phone Unavailable Allergies Active Description Code Type Severity Reaction Onset Reported/Identified Relationship to Patient Clinical Status Yes No Known Drug Allergies [id number] Drug Allergy Unknown N/A 09/08/2015 Medications There is no data. Problems Date Dx Coded Attending Type Code Diagnosis Diagnosed By 12/17/2010 CELSA LONGORIA DO 300.00 ANXIETY STATE UNSPECIFIED 12/17/2010 CELSA LONGORIA DO 401.9 UNSPECIFIED ESSENTIAL HYPERTENSION 12/17/2010 CELSA LONGORIA DO 790.29 OTHER ABNORMAL GLUCOSE 12/17/2010 CELSA LONGORIA DO V69.2 HIGH-RISK SEXUAL BEHAVIOR 12/17/2010 JEANIE FORMAN CLIFTON K 300.00 ANXIETY STATE UNSPECIFIED 12/17/2010 JEANIE FORMAN CLIFTON K 401.9 UNSPECIFIED ESSENTIAL HYPERTENSION 12/17/2010 WARE DO CLIFTON K 790.29 OTHER ABNORMAL GLUCOSE 12/17/2010 JEANIE FORMAN CLIFTON K V69.2 HIGH-RISK SEXUAL BEHAVIOR 12/17/2010 TRISTAN CHAPMAN MD 300.00 ANXIETY STATE UNSPECIFIED 12/17/2010 TRISTAN CHAPMAN MD 401.9 UNSPECIFIED ESSENTIAL HYPERTENSION 12/17/2010 TRISTAN CHAPMAN MD 790.29 OTHER ABNORMAL GLUCOSE 12/17/2010 TRISTAN CHAPMAN MD V69.2 HIGH-RISK SEXUAL BEHAVIOR 12/17/2010 JEANIE FORMAN CLIFTON K 300.00 ANXIETY STATE UNSPECIFIED 12/17/2010 WARE DO CLIFTON K 401.9 UNSPECIFIED ESSENTIAL HYPERTENSION 12/17/2010 WARE DO CLIFTON K 790.29 OTHER ABNORMAL GLUCOSE 12/17/2010 WARE DO CLIFTON K V69.2 HIGH-RISK SEXUAL BEHAVIOR 02/14/2011 CELSA LONGORIA DO 296.30 MO DEPRESSIVE RECURRENT UNSPECIFIED 02/14/2011 JEANIE FORMAN CLIFTON K 296.30 MO DEPRESSIVE RECURRENT UNSPECIFIED 02/14/2011 TRISTAN CHAPMAN MD 296.30 MO DEPRESSIVE RECURRENT UNSPECIFIED 02/14/2011 CLIFTON WARE DO 296.30 MO DEPRESSIVE RECURRENT UNSPECIFIED 03/25/2011 CELSA LONGORIA DO 307.47 SI DYSSOMNIA NOS 03/25/2011 CLIFTON WARE DO 307.47 SI DYSSOMNIA NOS 03/25/2011 TRISTAN CHAPMAN MD 307.47 SI DYSSOMNIA NOS 03/25/2011 CLIFTON WARE DO 307.47 SI DYSSOMNIA NOS 05/16/2011 CELSA LONGORIA DO 496 CHRONIC AIRWAY OBSTRUCTION NOT ELSEWHERE CLASSIFIED 05/16/2011 CLIFTON WARE DO 496 CHRONIC AIRWAY OBSTRUCTION NOT ELSEWHERE CLASSIFIED 05/16/2011 TRISTAN CHAPMAN MD 496 CHRONIC AIRWAY OBSTRUCTION NOT ELSEWHERE CLASSIFIED 05/16/2011 CLIFTON WARE DO 496 CHRONIC AIRWAY OBSTRUCTION NOT ELSEWHERE CLASSIFIED 07/15/2011 CELSA LONGORIA DO V58.69 MEDICATION HIGH RISK 07/15/2011 CLIFTON WARE DO V58.69 MEDICATION HIGH RISK 07/15/2011 TRISTAN CHAPMAN MD V58.69 MEDICATION HIGH RISK 07/15/2011 CLIFTON WARE DO V58.69 MEDICATION HIGH RISK 08/17/2011 CELSA LONGORIA DO 309.81 AN PTSD 08/17/2011 CLIFTON WARE DO 309.81 AN PTSD 08/17/2011 TRISTAN CHAPMAN MD 309.81 AN PTSD 08/17/2011 CLIFTON WARE DO 309.81 AN PTSD 01/18/2013 CLIFTON WARE DO 616.10 VAGINITIS AND VULVOVAGINITIS UNSPECIFIED 01/18/2013 TRISTAN CHAPMAN MD 616.10 VAGINITIS AND VULVOVAGINITIS UNSPECIFIED 01/18/2013 CLIFTON WARE DO 616.10 VAGINITIS AND VULVOVAGINITIS UNSPECIFIED 10/17/2013 TRISTAN CHAPMAN MD 340 MULTIPLE SCLEROSIS 10/17/2013 CLIFTON WARE DO 340 MULTIPLE SCLEROSIS 09/02/2015 TRISTAN CHAPMAN MD, Ot 331.9 CEREB DEGENERATION NOS 09/02/2015 TRISTAN CHAPMAN MD, Ot 340 MULTIPLE SCLEROSIS 09/02/2015 TRISTAN CHAPMAN MD Ot 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 09/02/2015 TRISTAN CHAPMAN MD, Ot 784.0 HEADACHE 09/08/2015 TRISTAN CHAPMAN MD Ot 331.9 CEREB DEGENERATION NOS 09/08/2015 ARI LESLIE, TRISTAN [place] Ot 340 MULTIPLE SCLEROSIS 09/08/2015 TRISTAN CHAPMAN MD Ot 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 09/08/2015 TRISTAN CHAPMAN MD Ot 784.0 HEADACHE 09/09/2015 DARWIN VIVI Jane TAR DISTRIBUTOR OPERATOR Ot G35 MULTIPLE SCLEROSIS 09/09/2015 GRANADOSVIVI TAR DISTRIBUTOR OPERATOR Ot G35 MULTIPLE SCLEROSIS 10/20/2015 GRANADOSVIVI TAR DISTRIBUTOR OPERATOR Ot G35 MULTIPLE SCLEROSIS Procedures Code [place] [address] CULTURE UROGENITAL 01/18/2013 93706 GC/CHLAM PROBE ([facility]) 01/18/2013 74879 TRICHOMONAS (IN-HOUSE) 01/18/2013 69109 ROUTINE VENIPUNCTURE 10/17/2013 [id number] GFR CALC (RESULT ONLY) 10/17/2013 13397 [facility] 10/17/2013 76835 ROUTINE VENIPUNCTURE 10/22/2013 62251 MRI BRAIN W/O CONTRAST 10/22/2013 Neurology Rupinder Pardo 10/22/2013 74454 [facility] 10/22/2013 [id number] GFR CALC (RESULT ONLY) 10/22/2013 Results Test Result Range CBC With Differential/Platelet - 06/01/16 14:00 WBC 12.0 x10E3/uL 3.4-10.8 RBC 4.83 x10E6/uL 3.77-5.28 Hemoglobin 13.9 g/dL 11.1-15.9 Hematocrit 42.9 % 34.0-46.6 MCV 89 fL 79-97 MCH 28.8 pg 26.6-33.0 MCHC 32.4 g/dL 31.5-35.7 RDW 13.9 % 12.3-15.4 Platelets 262 x10E3/uL 150-379 Neutrophils 67 % Lymphs 25 % Monocytes 6 % Eos 2 % Basos 0 % Neutrophils (Absolute) 8.0 x10E3/uL 1.4-7.0 Lymphs (Absolute) 3.0 x10E3/uL 0.7-3.1 Monocytes(Absolute) 0.7 x10E3/uL 0.1-0.9 Eos (Absolute) 0.2 x10E3/uL 0.0-0.4 Baso (Absolute) 0.0 x10E3/uL 0.0-0.2 Immature Granulocytes 0 % Immature Grans (Abs) 0.0 x10E3/uL 0.0-0.1 Comp. Metabolic Panel (14) - 06/01/16 14:00 Glucose, Serum 117 mg/dL 65-99 BUN 27 mg/dL 8-27 Creatinine, Serum 0.98 mg/dL 0.57-1.00 eGFR If NonAfricn Am 62 mL/min/1.73 >59 eGFR If Africn Am 72 mL/min/1.73 >59 BUN/Creatinine Ratio 28 11-26 Sodium, Serum 137 mmol/L 134-144 Potassium, Serum 4.5 mmol/L 3.5-5.2 Chloride, Serum 98 mmol/L 96-106 Carbon Dioxide, Total 24 mmol/L 18-29 Calcium, Serum 10.1 mg/dL 8.7-10.3 Protein, Total, Serum 6.7 g/dL 6.0-8.5 Albumin, Serum 4.3 g/dL 3.6-4.8 Globulin, Total 2.4 g/dL 1.5-4.5 A/G Ratio 1.8 1.1-2.5 Bilirubin, Total 0.3 mg/dL 0.0-1.2 Alkaline Phosphatase, S 101 IU/L 39-117 AST (SGOT) 38 IU/L 0-40 ALT (SGPT) 34 IU/L 0-32 Lipid Panel - 06/01/16 14:00 Cholesterol, Total 157 mg/dL 100-199 Triglycerides 178 mg/dL 0-149 HDL Cholesterol 56 mg/dL >39 VLDL Cholesterol Emanuel 36 mg/dL 5-40 LDL Cholesterol Calc 65 mg/dL 0-99 Pap Lb, rfx HPV ASCU - 08/17/16 00:00 DIAGNOSIS: Comment Specimen adequacy: Comment Clinician provided ICD10: Comment Performed by: Comment . . Note: Comment . Comment Genital Culture, Routine - 08/17/16 15:43 Genital Culture, Routine Note VITAMIN D, 25-H - 06/08/17 11:06 VITAMIN D,25-OH,TOTAL,IA 12 ng/mL 30-100 CMP - 06/09/17 08:04 GLUCOSE 129 mg/dL 65-99 UREA NITROGEN (BUN) 12 mg/dL 7-25 CREATININE 0.93 mg/dL 0.50-0.99 eGFR NON-AFR. KENYAN 66 mL/min/1.73m2 > OR=60 eGFR 76 mL/min/1.73m2 > OR=60 BUN/CREATININE RATIO NOT APPLICABLE (calc) 6-22 SODIUM 142 mmol/L 135-146 POTASSIUM 4.5 mmol/L 3.5-5.3 CHLORIDE 105 mmol/L 98-110 CARBON DIOXIDE 28 mmol/L 20-31 CALCIUM 10.1 mg/dL 8.6-10.4 PROTEIN, TOTAL 6.9 g/dL 6.1-8.1 ALBUMIN 4.3 g/dL 3.6-5.1 GLOBULIN 2.6 g/dL (calc) 1.9-3.7 ALBUMIN/GLOBULIN RATIO 1.7 (calc) 1.0-2.5 BILIRUBIN, TOTAL 0.5 mg/dL 0.2-1.2 ALKALINE PHOSPHATASE 100 U/L 33-130 AST 52 U/L 10-35 ALT 57 U/L 6-29 Encounters ACCT No. Visit Date/Time Discharge Status Pt. Type Provider Facility Loc./Unit Complaint [id number] 10/22/2013 10:50:00 10/22/2013 23:59:59 CLS Outpatient CLIFTON WARE DO [id number] 10/17/2013 10:51:00 10/17/2013 23:59:59 CLS Outpatient TRISTAN CHAPMAN MD [id number] 01/18/2013 09:40:00 01/18/2013 23:59:59 CLS Outpatient CLIFTON WARE DO [id number] 12/16/2011 13:35:00 12/16/2011 23:59:59 CLS Outpatient CELSA LONGORIA DO [id number] 08/20/2016 10:07:00 Document Registration [id number] 08/22/2016 11:08:00 Document Registration [id number] 06/02/2016 08:41:00 Document Registration [id number] 07/12/2017 15:00:00 07/12/2017 23:59:59 [id number] 06/09/2017 08:20:00 Document Registration [id number] 06/08/2017 10:00:00 Document Registration [id number] 09/08/2015 10:40:00 09/08/2015 23:59:59 CLS Outpatient VIVI GRANADOS [facility] [id number] 11/19/2013 15:45:00 11/19/2013 23:59:59 CLS Outpatient ARI LESLIE, TRISTAN [place] [facility]
[2017-08-09] MEDS ORDERED: morphine INJ 4 MG/ML 1 ML (VIAL/SYRINGE) IV PRN (12:45)
[2017-08-09] MEDS ORDERED: ATOR10TA PO (13:29)
[2017-08-09] MEDS ORDERED: GLIM1TAB PO (13:29)
[2017-08-09] MEDS ORDERED: LISI10TA2 PO (13:29)
[2017-08-09] MEDS ORDERED: ERGO50006 PO (13:29)
[2017-08-09] MEDS ORDERED: RT-ALBUINH INH (13:29)
[2017-08-09] MEDS ORDERED: COLE1TAB PO (13:29)
[2017-08-09] MEDS ORDERED: METF500T8 PO (13:29)
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
[2017-08-09] MEDS ORDERED: RT-ALBUTEROL/IPRATROPIUM 3 ML (DUONEB) VIAL INH PRN (13:30)
[2017-08-09] MEDS ORDERED: NFBIOT1000 PO (13:46)
[2017-08-09] MEDS ORDERED: ASPI-808 PO (13:46)
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
[2017-08-09] MEDS ORDERED: NON-FORMULARY MEDICATION 1 EA EA (Albuterol Sulfate (Proair Hfa) 2 PUFF) INH PRN (14:15)
[2017-08-09] MEDS: FAMOTIDINE 20 MG (PEPCID) TABLET PO SCH ×2 (14:46→20:30)
[2017-08-09] MEDS: inSUlin ASPART (NovoLOG) 1 UNIT/0.01 ML (CHARGE PER UNIT) SC SCH ×2 (16:26→21:15)
[2017-08-09 17:06] LABS: CREATINE KINASE 49 U/L (29-168)
[2017-08-09] MEDS: RT-ALBUTEROL/IPRATROPIUM 3 ML (DUONEB) VIAL INH SCH (20:49)
[2017-08-09] MEDS ORDERED: metFORMIN XR 500 MG (GLUCOPHAGE XR) TAB PO SCH (21:00)
[2017-08-10] VITALS (7 sets, daily range): BP systolic 115–174; BP diastolic 59–114
[2017-08-10] MEDS: inSUlin ASPART (NovoLOG) 1 UNIT/0.01 ML (CHARGE PER UNIT) SC SCH ×2 (05:16→11:42)
[2017-08-10 06:32] LABS: HEPATITIS C ANTIBODY C Non-Reactive (Non-Reactive)
[2017-08-10] MEDS: RT-ALBUTEROL/IPRATROPIUM 3 ML (DUONEB) VIAL INH SCH (07:01)
[2017-08-10 07:20] LABS: ALBUMIN 3.9 GM/DL (3.2-4.5); BILIRUBIN,TOTAL 0.5 MG/DL (0.1-1.0); CALCIUM 10.3 MG/DL (8.5-10.1); CREATININE SERUM 0.95 MG/DL (0.60-1.30); POTASSIUM 4.4 MMOL/L (3.6-5.0); TOTAL PROTEIN 6.9 GM/DL (6.4-8.2)
[2017-08-10] MEDS ORDERED: REGADENOSON 0.4 MG/5 ML SYR (LEXISCAN) IV ONE ×2 (08:26→09:00)
[2017-08-10] MEDS ORDERED: NON-FORMULARY MEDICATION 1 EA EA (Lisinopril 10 MG) PO SCH (09:00)
[2017-08-10] MEDS ORDERED: ASPIRIN E.C. 325 MG (ECOTRIN) TABLET PO SCH (09:00)
[2017-08-10] MEDS ORDERED: GLIMEPIRIDE 1 MG (AMARYL) TAB PO SCH (09:00)
[2017-08-10] MEDS ORDERED: lisINopril 10 MG (PRINIVIL) TABLET PO SCH (09:00)
--- NOTE | 2017-08-10 09:28 | Cardiology Progress Note ---
Cardiology SOAP Progress Note Subjective: No further chest pain. Objective: I&O/Vital Signs 08/10/17 08/10/17 08/10/17 08/10/17 07:00 07:01 08:00 08:37 Pulse 98 103 B/P (MAP) 174/79 (110) Pulse Ox 96 96 O2 Delivery Room Air Room Air 08/10/17 08/10/17 08/10/17 08/10/17 08:50 09:00 12:00 12:30 Temp 97.1 Pulse 131 88 Resp 20 B/P (MAP) 171/114 (133) 115/65 (82) Pulse Ox 96 100 O2 Delivery Room Air Room Air Room Air 08/10/17 13:06 Pulse 92 08/10/17 00:00 Intake Total 350 ml Output Total 450 ml Balance -100 ml Weight (Pounds): 144 Weight (Ounces): 9.0 Weight (Calculated Kilograms): [id number] Constitutional: No appears stated age; AAO x 3; No apparent distress, No PERRL , No well-developed, No well-nourished, No other Respiratory: No accessory muscle use, No respiratory distress, No chest tender , No chest expansion is symmetric; chest is bilaterally symmetric; No lungs clear to percussion; lungs clear to auscultation; No crackles, No rhonchi, No rales, No stridor, No wheezing, No pleural rub, No other Cardiovascular: regular rate-rhythm; No irregularly irregular, No extra beats, No parasternal heave is noted, No JVD, No edema, No bradycardia, No tachycardia , No point of maximal impulse, No cardiac thrills are palpable; S1 and S2; No gallop/S3, No gallop/S4, No diastolic murmur, No systolic murmur, No friction rub, No click, No other Gastrointestional: No tender, No soft, No round, No distended, No pulsatile mass, No organomegaly, No guarding, No rebound, No tenderness, No hernia, No mass, No audible bowel sounds, No abnormal bowel sounds, No abdominal bruits, No spleenomegaly, No other Extremities: No normal range of motion, No non-tender, No normal inspection, No pedal edema, No calf tenderness, No normal capillary refill, No pelvis stable , No calf tenderness, No inflammation, No pedal edema, No slow capillary refill , No swelling, No other, No abrasion, No clubbing, No cyanosis, No ecchymosis, No laceration, No no lower extremity edema bilateral, No significant edema, No tenderness, No wound Neurologic/Psychiatric: No clinical nurse specialist II-XII nml as tested, No no motor/sensory deficits; alert, normal mood/affect, oriented x 3; No abnormal cerebellar tests , No abnormal clinical nurse specialist II-XII, No abnormal gait, No aphasia, No EOM palsy, No facial droop, No motor weakness, No sensory deficit, No depressed affect, No disoriented x 3, No other, No grossly intact, No power is 5/5 both on sides Skin: No normal color, No warm/dry, No cyanosis, No cool, No diaphoresis, No damp, No ecchymosis, No jaundice, No mottled, No pallor, No rash, No tattoos/ piercings, No ulcerations, No rash on exposed areas, No ulcerations on exposed areas, No other Results/Procedures: Labs Laboratory Tests 08/09/17 16:45: Total Creatine Kinase 49, Troponin I < 0.30 08/09/17 20:14: Glucometer 170H 08/10/17 05:16: Glucometer 153H 08/10/17 05:28: Sodium Level 137, Potassium Level 4.4, Chloride Level 105, Carbon Dioxide Level 22, Anion Gap 10, Blood Urea Nitrogen 14, Creatinine 0.95, Estimat Glomerular Filtration Rate 60, BUN/Creatinine Ratio 15, Glucose Level 137H, Calcium Level 10.3H, Total Bilirubin 0.5, Aspartate Amino Transf (AST/SGOT) 37H, Alanine Aminotransferase (ALT/SGPT) 48, Alkaline Phosphatase 126, Total Protein 6.9, Albumin 3.9, Triglycerides Level 119, Cholesterol Level 118, LDL Cholesterol Direct 53, VLDL Cholesterol 24, HDL Cholesterol 42 08/10/17 10:43: Glucometer 219H A/P: Assessment/Dx: Chest pain, diabetes, hyperlipidemia, hypertension, active smoking Plan: Chest pain, negative first set of cardiac enzymes. negative EKG. ACS ruled out with negative serial troponin. Nuclear stress test did not show any significant perfusion defects. Echocardiogram. diabetes - metformin. hyperlipidemia - continue atorvastatin. hypertension - Lisinopril. active smoking - smoking cessation strongly recommended. Okay to discharge and to follow-up with cardiology in a month. Thank you for your consultation. Please call me if you have any questions. Dalila Dwo MD, FACP, FACC, FSCAI, FHRS, CCDS Interventional Cardiology Cardiac Electrophysiology Vascular Medicine and Endovascular Interventions Clinical Quality Measures AMI/AHF: ASA po Prior to arrival: Yes Darryl DOW MD Aug 10, 2017 9:28 am
[2017-08-10] MEDS ORDERED: ASPI325T32 PO (11:13)
[2017-08-10] MEDS: FAMOTIDINE 20 MG (PEPCID) TABLET PO SCH (11:42)
--- NOTE | 2017-08-10 16:19 | Cardiology Stress Test Report ---
Stress Test Report Type of NM Stress Test: Test Type: LEXISCAN 0.4MG/5ML Date of Procedure/Referring: Date of Procedure: Aug 10, 2017 PCP Marissa Pastor MD Admitting Physician [facility] - [facility] Of Indications: Chest pain Baseline Heart Rate: 102 Baseline Blood Pressure: Blood Pressure Systolic: 174 Blood Pressure Diastolic: 79 Baseline EKG: Baseline EKG: Sinus rhythm Summary: The patient was brought to the stress lab after informed consent was taken. Stress test was performed according to the Lexiscan protocol. 0.4 mg of IV Lexiscan was given. Low-grade exercise was performed. Baseline EKG showed sinus rhythm at 102 BPM. Blood pressure was 174/79 mmHg. Patient did not have any chest pain, EKG changes or arrhythmias noted during the stress test. 10.32 mCi of Myoview was given for rest imaging and 31.6 mCi of Myoview was given for stress imaging. Transient ischemic dilatation score is 0.68. Ejection fraction 76 percent. With no wall motion abnormalities. Normal perfusion during rest and stress imaging. Conclusion: Pharmacological stress test was negative for ischemia. Normal LV function with no wall motion abnormalities. Poor blood pressure control. Normal myocardial perfusion imaging during rest and stress. Darryl MORAN MD Aug 10, 2017 16:19
--- NOTE | 2017-08-11 09:36 | Discharge Summary ---
Diagnosis/Chief Complaint Date of Admission Aug 09, 2017 at 11:38 Date of Discharge Aug 10, 2017 at 16:25 Admission Diagnosis Admission Diagnosis (1) Chest pain Status: Acute Qualifiers: Qualified Codes: R07.9 - Chest pain, unspecified (2) Elevated LFTs Status: Acute (3) Hypercalcemia Status: Acute (4) Diabetes mellitus, type 2 Status: Chronic (5) Hyperlipidemia Status: Chronic (6) Hypertension Status: Chronic Qualifiers: Qualified Codes: I10 - Essential (primary) hypertension (7) Hearing impairment Status: Chronic Discharge Diagnosis (1) Chest pain Assessment & Plan: Initial troponin negative, Cardiology consulted, underwent stress test which was negative for ischemia. (2) Elevated LFTs Status: Acute Assessment & Plan: Hepatitis panel negative. Improved on second day with holding statin and colestiol. On d/c continued only statin, recommend recheck LFTs and consider liver US, she does note distant history of heavy alcohol use. (3) Hypercalcemia Status: Acute Assessment & Plan: Persistent on day 2, PTH pending at d/c (4) Diabetes mellitus, type 2 Status: Chronic Assessment & Plan: Resume home medications, diabetic diet Qualifiers: (5) Hyperlipidemia Status: Chronic Assessment & Plan: Held home medications with LFT elevation (6) Hypertension Status: Chronic Assessment & Plan: Resume home medications Qualifiers: Qualified Codes: I10 - Essential (primary) hypertension (7) Hearing impairment Status: Chronic Assessment & Plan: Hearing aids in place but batteries dying, she will try to get someone to bring her some. Qualifiers: Chief Complaint/HPI Chief Complaint/HPI 62 yo female presented to ER with 2 days of pain across back of shoulders and neck and heaviness in mid low chest. She reports she ignored it at first, but got worse. She has had this in the past but not this severe. She reports a stress test 7 years ago and she is scared to have another. She does smoke. She denies history of heart attack/disease in the past, but states she has been told she had a stroke but does not know if that is true. She knows of no history of liver problems, but she does have an ex-boyfriend with hepatitis and she has tattoos and she used to drink heavily until about 20 years ago. Discharge Summary-Simple/Stand Consultations Discharge Physical Examination Allergies: Coded Allergies: No Known Drug Allergies (Unverified , 08/09/17) Vitals & I&Os Vital Sign - Last 12Hours Date Time Temp Pulse Resp B/P (MAP) Pulse Ox O2 Delivery O2 Flow Rate FiO2 08/10/17 16:25 92 20 115/65 100 Room Air 08/10/17 12:30 97.1 08/09/17 13:27 21 Intake and Output 08/11/17 00:00 Intake Total 560 ml Output Total 750 ml Balance -190 ml General Appearance: Alert, No Acute Distress Respiratory: Clear to Auscultation, Normal Air Movement Cardiovascular: Regular Rate, No Murmurs Neuro: Normal Speech Hospital Course See final discharge diagnosis. Labs Laboratory Tests Test 08/09/17 10:45 08/09/17 16:07 08/09/17 16:45 08/09/17 20:14 Range/Units White Blood Count 10.6 4.3-11.0 10^3/uL Red Blood Count 4.81 4.35-5.85 10^6/uL Hemoglobin 14.2 11.5-16.0 G/DL Hematocrit 42 35-52 % Mean Corpuscular Volume 88 80-99 FL Mean Corpuscular Hemoglobin 30 25-34 PG Mean Corpuscular Hemoglobin Concent 34 32-36 G/DL Red Cell Distribution Width 13.5 10.0-14.5 % Platelet Count 262 130-400 10^3/uL Mean Platelet Volume 11.2 H 7.4-10.4 FL Neutrophils (%) (Auto) 63 42-75 % Lymphocytes (%) (Auto) 26 12-44 % Monocytes (%) (Auto) 9 0-12 % Eosinophils (%) (Auto) 2 0-10 % Basophils (%) (Auto) 1 0-10 % Neutrophils # (Auto) 6.7 1.8-7.8 X 10^3 Lymphocytes # (Auto) 2.7 1.0-4.0 X 10^3 Monocytes # (Auto) 0.9 0.0-1.0 X 10^3 Eosinophils # (Auto) 0.3 0.0-0.3 10^3/uL Basophils # (Auto) 0.1 0.0-0.1 10^3/uL Prothrombin Time 13.0 12.2-14.7 SEC INR Comment 1.0 0.8-1.4 Activated Partial Thromboplast Time 31 24-35 SEC Sodium Level 138 135-145 MMOL/L Potassium Level 4.8 3.6-5.0 MMOL/L Chloride Level 105 98-107 MMOL/L Carbon Dioxide Level 23 21-32 MMOL/L Anion Gap 10 5-14 MMOL/L Blood Urea Nitrogen 10 7-18 MG/DL Creatinine 0.88 0.60-1.30 MG/DL Estimat Glomerular Filtration Rate > 60 BUN/Creatinine Ratio 11 Glucose Level 103 70-105 MG/DL Calcium Level 10.6 H 8.5-10.1 MG/DL Magnesium Level 2.0 1.8-2.4 MG/DL Total Bilirubin 0.5 0.1-1.0 MG/DL Aspartate Amino Transf (AST/SGOT) 65 H 5-34 U/L Alanine Aminotransferase (ALT/SGPT) 61 H 0-55 U/L Alkaline Phosphatase 111 40-136 U/L Myoglobin 48.5 10.0-92.0 NG/ML Troponin I < 0.30 < 0.30 <0.30 NG/ML Total Protein 7.6 6.4-8.2 GM/DL Albumin 4.2 3.2-4.5 GM/DL Hepatitis A IgM Antibody Non-Reactive Non-Reactive Hepatitis B Surface Antigen Non-Reactive Non-Reactive Hepatitis B Core IgM Antibody Non-Reactive Non-Reactive Hepatitis C Antibody Non-Reactive Non-Reactive Glucometer 134 H 170 H 70-110 MG/DL Total Creatine Kinase 49 29-168 U/L Test 08/10/17 05:16 08/10/17 05:28 08/10/17 10:43 Range/Units Glucometer 153 H 219 H 70-110 MG/DL Sodium Level 137 135-145 MMOL/L Potassium Level 4.4 3.6-5.0 MMOL/L Chloride Level 105 98-107 MMOL/L Carbon Dioxide Level 22 21-32 MMOL/L Anion Gap 10 5-14 MMOL/L Blood Urea Nitrogen 14 7-18 MG/DL Creatinine 0.95 0.60-1.30 MG/DL Estimat Glomerular Filtration Rate 60 BUN/Creatinine Ratio 15 Glucose Level 137 H 70-105 MG/DL Calcium Level 10.3 H 8.5-10.1 MG/DL Total Bilirubin 0.5 0.1-1.0 MG/DL Aspartate Amino Transf (AST/SGOT) 37 H 5-34 U/L Alanine Aminotransferase (ALT/SGPT) 48 0-55 U/L Alkaline Phosphatase 126 40-136 U/L Total Protein 6.9 6.4-8.2 GM/DL Albumin 3.9 3.2-4.5 GM/DL Triglycerides Level 119 <150 MG/DL Cholesterol Level 118 < 200 MG/DL LDL Cholesterol Direct 53 1-129 MG/DL VLDL Cholesterol 24 5-40 MG/DL HDL Cholesterol 42 40-60 MG/DL Parathyroid Hormone (Intact) 39.0 10.0-65.0 pg/mL Radiology Reviewed CXR: unremarkable Discharge Instructions to patient/family Please see electronic discharge instructions given to patient. Discharge Medications Reviewed and agree with Discharge Medication list on patient's Discharge Instruction sheet Clinical Quality Measures AMI/AHF: ASA po Prior to arrival: Yes DVT/VTE Risk/Contraindication: Risk Factor Score Per Nursin RFS Level Per Nursing on Admit: 4+=Very High Copy Copies To 1: SLICK Gong BETHANY N MD Aug 11, 2017 09:36
== END 2017-08-10 15:42 | disposition home or self-care (01) ==
LOC: EDUNIT# 10:10 → ER 10:11 → 4TH 11:38
PROVIDERS: ADMIT Family Medicine; ATTEND Family Medicine
DX: R07.9 Chest pain, unspecified (principal); R74.8 Abnormal levels of other serum enzymes; E83.52 Hypercalcemia; E11.9 Type 2 diabetes mellitus without complications; E78.5 Hyperlipidemia, unspecified; I10 Essential (primary) hypertension; H91.90 Unspecified hearing loss, unspecified ear; F17.210 Nicotine dependence, cigarettes, uncomplicated
CPT/HCPCS: 36415; 71045; 78452; 80053; 80061; 80074; 82550; 82962; 83735; 83874; 83970; 84484; 85025; 85610; 85730; 93005; 93017; 93041; 93306; 94640; 94760; G0378

== ENCOUNTER → 2017-08-25 | Outpatient (CLI) | payer OTHER ==
[~2017-08-25] MED LIST: ASPI-808 PO; ASPI325T32 PO; ATOR10TA PO; COLE1TAB PO; ERGO50006 PO; GLIM1TAB PO; LISI10TA2 PO; METF500T8 PO; NFBIOT1000 PO; RT-ALBUINH INH
--- NOTE | 2017-08-25 11:12 | Diagnostic Imaging Report ---
PROCEDURE: US Abdomen, limited. TECHNIQUE: Multiple realtime grayscale images were obtained over the abdomen in various projections. INDICATION: Elevated liver enzymes. Liver is normal in size at 16.4 cm. There is diffuse increased echogenicity consistent with hepatic steatosis. No discrete mass is seen. Gallbladder is surgically absent. No biliary ductal dilatation is seen. The pancreas is obscured by the bowel gas. Right kidney is unremarkable. There is no ascites. Impression: 1. Hepatic steatosis. No other significant abnormality is detected. Dictated by: Dictated on workstation # [id number]
== END ==
LOC: RAD 10:07
PROVIDERS: ATTEND Nurse Practitioner Family
DX: K76.0 Fatty (change of) liver, not elsewhere classified (principal)
CPT/HCPCS: 76705

== ENCOUNTER → 2017-09-11 | Outpatient (CLI) | payer OTHER ==
[~2017-09-11] MED LIST changes: +RT-ALBUTEROL SULF 2.5 MG/3 ML PRE-MIX VIAL INH ONE
== END ==
LOC: RT 15:13
PROVIDERS: ATTEND Internal Medicine Interventional Cardiology
DX: R06.02 Shortness of breath (principal); Z72.0 Tobacco use
CPT/HCPCS: 94060; 94726; 94729

== ENCOUNTER → 2017-10-05 | Outpatient (CLI) | payer OTHER ==
[~2017-10-05] MED LIST changes: -RT-ALBUTEROL SULF 2.5 MG/3 ML PRE-MIX VIAL INH ONE
[2017-10-05 14:50] LABS: ABG BASE EXCESS -2.4 MMOL/L (-2.5-2.5); ABG OXYGEN SATURATION 97 % (94-100); ABG PCO2 36 MMHG (35-45); ABG PO2 92 MMHG (79-93); ABG TCO2 22.7 MMOL/L (21.0-31.0)
[2017-10-05 14:53] LABS: ALLENS TEST P; INSPIRED O2 NO; PATIENT TEMP 99.1; VENTILATOR NO
== END ==
LOC: LAB 14:22
PROVIDERS: ATTEND Nurse Practitioner Family
DX: J44.9 Chronic obstructive pulmonary disease, unspecified (principal)
CPT/HCPCS: 36600; 82805

== ENCOUNTER 2019-02-22 13:40 | Outpatient (CLI) | payer OTHER ==
[~2019-02-22] VITALS: Ht 152 cm; Wt 62.7 kg
[~2019-02-22 13:40] MED LIST changes: +FLUT1DIS26 IH
[2019-02-26] MEDS ORDERED: PANT40TA2 PO (16:00)
== END 2019-02-22 13:47 | disposition home or self-care (01) ==
LOC: PREOP 13:40
PROVIDERS: ATTEND Surgery
DX: Z01.818 Encounter for other preprocedural examination (principal)

== ENCOUNTER → 2021-05-04 | Outpatient (CLI) | payer OTHER ==
[~2021-05-04] MED LIST changes: -GLIM1TAB PO; +GLIM1TAB4 PO; -LISI10TA2 PO; +LISI10TA25 PO; +METF-865 PO; -METF500T8 PO; +PANT40TA2 PO
--- NOTE | 2021-05-04 13:12 | Diagnostic Imaging Report ---
INDICATION: Postmenopausal screening COMPARISON: Baseline FINDINGS: AP Spine L1-L4: [BMD (g/cm2): 1.085] [T-Score: -1.0] [Z-Score: 0.7] [BMD Previous: NA] [BMD % Change: NA] LT Hip Neck: [BMD (g/cm2): 0.810] [T-Score: -1.6] [Z-Score: -0.1] LT Hip Total: [BMD (g/cm2):0.869] [T-Score:-1.1] [Z-Score: 0.2] [BMD Previous: NA] [BMD % Change: NA] RT Hip Neck: [BMD (g/cm2):0.803] [T-Score:-1.7] [Z-Score:-0.2] RT Hip Total: [BMD (g/cm2):0.897] [T-score:-0.9] [Z-Score:0.4] [BMD Previous:NA] [BMD % Change:NA] *Indicates significant change from prior examination based on 95% confidence level. World Health Organization criteria for BMD interpretation classify patients as Normal (T-score at or above -1.0), Osteopenic (T-score between -1.0 and -2.5) or Osteoporotic (T-score at or below -2.5). LIMITATIONS AND MODIFICATION: None. FRACTURE RISK (FRAX SCORE): The ten year probability of (%): Major Osteoporotic Fracture: [15.9] Hip Fracture: [2.1] IMPRESSION: 1. Osteopenia (Low bone mass). 2. Baseline examination. 3. See below National Osteoporosis Foundation guidelines on when to potentially initiate pharmacologic therapy. Based on the National Osteoporosis Foundation Guidelines, pharmacologic treatment should be initiated in any of the following, unless clinical conditions suggest otherwise: * Any patient with prior fragility fracture of the hip or vertebrae. A spine fracture indicates 5X risk for subsequent spine fracture and 2X risk for subsequent hip fracture. * Osteoporosis (T-score <-2.5). * Postmenopausal women and men age 50 and older with low bone mass/osteopenia (T-score between -1.0 and -2.5) by DXA and 10-year major osteoporotic fracture greater than 20% or a 10-year probability of hip fracture greater than 3%. These fracture risks are supplied above in the FRAX score, if applicable. * Clinician judgement and/or patient preferences may indicate treatment for people with 10-year fracture probabilities above or below these levels. Dictated by: Dictated on workstation # [id number]
--- NOTE | 2021-05-04 13:41 | Diagnostic Imaging Report ---
EXAMINATION: CT chest without contrast (lung screening). TECHNIQUE: Multiple contiguous axial images were obtained through the chest without the use of intravenous contrast according to lung cancer screening protocol. All CT scans use one or more of the following dose optimizing techniques: automated exposure control, MA and/or KvP adjustment based on patient size and exam type or iterative reconstruction. HISTORY: [id number] history of smoking. COMPARISON: None available. FINDINGS: Thyroid: The thyroid is normal. Mediastinum: Heart size is normal without significant pericardial effusion. Calcifications of the aorta and coronary vessels. Thoracic aorta is normal in caliber. No suspicious lymphadenopathy. Lungs and airways: The lungs are clear without consolidation, pleural effusion, or pneumothorax. There is a 0.3 cm left lower lobe pulmonary nodule. The airways are normal. Upper abdomen: The subphrenic structures are normal. Musculoskeletal: No suspicious osseous lesion or compression fracture. IMPRESSION: 1. A 0.3 cm left lower lobe pulmonary nodule. Recommend continued annual low-dose CT screening. LUNG-RADS CATEGORY: 2 MODIFIER: None Dictated by: Dictated on workstation # [id number]
== END ==
LOC: RAD 13:00
PROVIDERS: ATTEND Nurse Practitioner
DX: Z12.2 Encounter for screening for malignant neoplasm of respiratory organs (principal); Z13.820 Encounter for screening for osteoporosis; M85.88 Other specified disorders of bone density and structure, other site; R91.1 Solitary pulmonary nodule; F17.210 Nicotine dependence, cigarettes, uncomplicated; Z78.0 Asymptomatic menopausal state
CPT/HCPCS: 71271; 77080

== ENCOUNTER 2021-09-05 04:34 | Inpatient (IN) | payer MEDICAID, MEDICARE, OTHER ==
[~2021-09-05] VITALS: Ht 162 cm; Wt 61.4 kg
[2021-09-05] MEDS ORDERED: methylPREDNISolone 125 MG (Solu-MEDROL) VIAL IV STA (04:51)
[2021-09-05 04:59] LABS: BASOPHILS # (AUTO) 0.1 10^3/uL (0.0-0.1); BASOPHILS % (AUTO) 1 % (0-10); EOSINOPHILS # (AUTO) 0.3 10^3/uL (0.0-0.3); EOSINOPHILS % (AUTO) 3 % (0-10); HEMATOCRIT 46 % (35-52); HEMOGLOBIN 14.8 g/dL (11.5-16.0); LYMPHOCYTES # (AUTO) 2.8 10^3/uL (1.0-4.0); LYMPHOCYTES % (AUTO) 27 % (12-44); MEAN CORPUSCULAR HEMOGLOBIN 28 pg (25-34); MEAN CORPUSCULAR HGB CONC 33 g/dL (32-36); MEAN CORPUSCULAR VOLUME 87 fL (80-99); MEAN PLATELET VOLUME 11.3 fL (9.0-12.2); MONOCYTES # (AUTO) 0.7 10^3/uL (0.0-1.0); MONOCYTES % (AUTO) 7 % (0-12); NEUTROPHILS # (AUTO) 6.7 10^3/uL (1.8-7.8); NEUTROPHILS % (AUTO) 63 % (42-75); PLATELET COUNT 267 10^3/uL (130-400); WHITE BLOOD COUNT 10.6 10^3/uL (4.3-11.0)
[2021-09-05 05:04] LABS: POTASSIUM 3.9 MMOL/L (3.6-5.0)
[2021-09-05 05:05] LABS: CALCIUM 10.2 MG/DL (8.5-10.1)
[2021-09-05 05:06] LABS: TOTAL PROTEIN 7.2 GM/DL (6.4-8.2)
[2021-09-05 05:08] LABS: BILIRUBIN,TOTAL 0.5 MG/DL (0.1-1.0)
[2021-09-05 05:10] LABS: CREATININE SERUM 1.43 MG/DL (0.60-1.30)
[2021-09-05 05:15] LABS: BILIRUBIN,URINE NEGATIVE (NEGATIVE); CLARITY,URINE CLEAR; COLOR,URINE YELLOW; GLUCOSE, URINE (UA) 3+ (NEGATIVE); KETONES,URINE NEGATIVE (NEGATIVE); LEUKOCYTE ESTERASE ,URINE NEGATIVE (NEGATIVE); NITRITE,URINE NEGATIVE (NEGATIVE); PROTEIN,URINE NEGATIVE (NEGATIVE)
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
[2021-09-05 05:37] LABS: AMPHETAMINE SCREEN, URINE NEGATIVE (NEGATIVE); BARBITURATE SCREEN URINE NEGATIVE (NEGATIVE); BENZODIAZEPINES SCREEN URINE NEGATIVE (NEGATIVE); CANNABINOID SCREEN, URINE POSITIVE (NEGATIVE); COCAINE SCREEN URINE NEGATIVE (NEGATIVE); METHADONE STAT NEGATIVE (NEGATIVE); OPIATE SCREEN URINE NEGATIVE (NEGATIVE); OXYCODONE STAT NEGATIVE (NEGATIVE); PROPOXYPHENE STAT NEGATIVE (NEGATIVE); TRICYCLIC ANTIDEPRESSANTS SCRE NEGATIVE (NEGATIVE)
--- NOTE | 2021-09-05 06:02 | Diagnostic Imaging Report ---
INDICATION: SMOKE INHALATION COMPARISON: 08/09/2017 FINDINGS: Single frontal view of the chest demonstrates normal heart size and pulmonary vascularity. The lungs are well aerated and clear. No large pleural effusion or pneumothorax is seen. The visualized osseous structures show no acute abnormalities. IMPRESSION: 1. No acute cardiopulmonary process. Dictated by: Dictated on workstation # [id number]
[2021-09-05 06:12] LABS: BACTERIA,URINE NEGATIVE /HPF; SQUAMOUS EPITHELIAL CELL,UR 0-2 /HPF
[2021-09-05] MEDS ORDERED: diphenhydrAMINE 50 MG/ML INJ (BENADRYL) IVP PRN (07:30)
[2021-09-05] MEDS ORDERED: ONDANSETRON 4 MG/2 ML (SDV) Z0FRAN IV PRN (07:30)
[2021-09-05] MEDS ORDERED: ONDANSETRON 4 MG (ZOFRAN) ORAL DISSOLVE TAB PO PRN (07:30)
[2021-09-05] MEDS ORDERED: polyethylene glycoL POWDER 17 GM (MIRALAX) PACK PO PRN (07:30)
[2021-09-05] MEDS ORDERED: CALCIUM CARBONATE 500 MG (TUMS) TAB.CHEW PO PRN (07:30)
[2021-09-05] MEDS ORDERED: MELATONIN 3 MG TABLET PO PRN (07:30)
[2021-09-05] MEDS ORDERED: ANTACID SUSP 30 ML UDC (MYLANTA) PO PRN (07:30)
[2021-09-05] MEDS ORDERED: BISACODYL 10 MG SUPP (DULCOLAX) PR PRN (07:30)
[2021-09-05] MEDS ORDERED: MILK OF MAGNESIA 400 MG/5 ML 30 ML UDC PO PRN (07:30)
[2021-09-05] MEDS ORDERED: LACTULOSE SYRUP 10GM/15ML (ENULOSE) 30ML UDC PO PRN (07:30)
[2021-09-05] MEDS ORDERED: morphine INJ 4 MG/ML 1 ML (VIAL/SYRINGE) IV PRN (07:30)
[2021-09-05] MEDS ORDERED: diphenhydrAMINE 25 MG TAB (BENADRYL) PO PRN (07:30)
[2021-09-05] MEDS: ENOXAPARIN 40 MG/0.4 ML (LOVENOX) SYR SC SCH (07:54)
[2021-09-05] MEDS: DOCUSATE SODIUM 100 MG (COLACE) CAP PO SCH ×2 (08:02→20:29)
[2021-09-05] MEDS: SENNOSIDES 8.6 MG (SENOKOT) TAB PO SCH ×2 (08:03→20:29)
[2021-09-05 08:05] VITALS: BP 139/72
[2021-09-05] MEDS ORDERED: RT-ALBUTEROL/IPRATROPIUM 3 ML (DUONEB) VIAL INH PRN (08:15)
[2021-09-05] MEDS: PANTOPRAZOLE 40 MG (PROTONIX) TAB PO SCH (08:33)
[2021-09-05] MEDS: lisINopril 10 MG (PRINIVIL) TABLET PO SCH (08:33)
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
[2021-09-05] MEDS: inSUlin ASPART (NovoLOG) 1 UNIT/0.01 ML (CHARGE PER UNIT) SC SCH ×3 (10:59→20:36)
[2021-09-05] MEDS: RT-ALBUTEROL/IPRATROPIUM 3 ML (DUONEB) VIAL INH SCH ×4 (11:43→22:25)
[2021-09-05] MEDS: methylPREDNISolone 40 MG/ML (Solu-MEDROL) VIAL IV SCH ×3 (11:57→23:21)
[2021-09-05] MEDS: ACETAMINOPHEN 325 MG TABLET PO PRN ×2 (12:02→17:09)
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
[2021-09-05] MEDS: RT--FLUTICASONE/SALMETEROL 113-14 (AIRDUO RespiCLICK) IH SCH (19:05)
[2021-09-05] MEDS ORDERED: AtorvaSTATin TABLET 10 MG TABLET PO SCH (21:00)
[2021-09-06] MEDS: RT-ALBUTEROL/IPRATROPIUM 3 ML (DUONEB) VIAL INH SCH ×5 (02:57→19:18)
[2021-09-06] MEDS: ACETAMINOPHEN 325 MG TABLET PO PRN ×2 (04:12→08:24)
[2021-09-06 04:29] LABS: BASOPHILS % (AUTO) 0 % (0-10); EOSINOPHILS % (AUTO) 0 % (0-10); HEMATOCRIT 43 % (35-52); LYMPHOCYTES # (AUTO) 1.1 10^3/uL (1.0-4.0); LYMPHOCYTES % (AUTO) 5 % (12-44); MEAN CORPUSCULAR HEMOGLOBIN 28 pg (25-34); MEAN CORPUSCULAR HGB CONC 33 g/dL (32-36); MEAN CORPUSCULAR VOLUME 86 fL (80-99); MEAN PLATELET VOLUME 11.4 fL (9.0-12.2); MONOCYTES # (AUTO) 0.3 10^3/uL (0.0-1.0); MONOCYTES % (AUTO) 2 % (0-12); NEUTROPHILS # (AUTO) 19.2 10^3/uL (1.8-7.8); NEUTROPHILS % (AUTO) 93 % (42-75); PLATELET COUNT 277 10^3/uL (130-400); WHITE BLOOD COUNT 20.8 10^3/uL (4.3-11.0)
[2021-09-06 04:48] LABS: POTASSIUM 3.8 MMOL/L (3.6-5.0)
[2021-09-06 04:49] LABS: CALCIUM 10.2 MG/DL (8.5-10.1)
[2021-09-06 04:52] LABS: BILIRUBIN,TOTAL 0.5 MG/DL (0.1-1.0)
[2021-09-06 04:54] LABS: CREATININE SERUM 1.81 MG/DL (0.60-1.30)
[2021-09-06 04:58] LABS: BAND NEUTROPHILS 2 %; BASOPHILS % (MANUAL) 0 %; EOSINOPHILS % (MANUAL) 0 %; LYMPHOCYTES % (MANUAL) 9 %; MONOCYTES % (MANUAL) 4 %; NEUTROPHILS % (MANUAL) 83 %; RBC MORPH NORMAL; REACTIVE LYMPHOCYTES 2 %
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
[2021-09-06] MEDS: inSUlin ASPART (NovoLOG) 1 UNIT/0.01 ML (CHARGE PER UNIT) SC SCH ×4 (05:57→21:36)
[2021-09-06] MEDS: methylPREDNISolone 40 MG/ML (Solu-MEDROL) VIAL IV SCH (05:57)
[2021-09-06] MEDS: RT--FLUTICASONE/SALMETEROL 113-14 (AIRDUO RespiCLICK) IH SCH ×2 (07:02→19:18)
[2021-09-06] MEDS: lisINopril 10 MG (PRINIVIL) TABLET PO SCH (08:23)
[2021-09-06] MEDS: ENOXAPARIN 40 MG/0.4 ML (LOVENOX) SYR SC SCH (08:23)
[2021-09-06] MEDS: SENNOSIDES 8.6 MG (SENOKOT) TAB PO SCH ×2 (08:24→21:36)
[2021-09-06] MEDS: DOCUSATE SODIUM 100 MG (COLACE) CAP PO SCH ×2 (08:24→21:35)
[2021-09-06] MEDS: PANTOPRAZOLE 40 MG (PROTONIX) TAB PO SCH (08:24)
[2021-09-06] MEDS ORDERED: ATOR20TA66 PO (09:50)
[2021-09-06] MEDS ORDERED: ALB0.5V INH (09:50)
[2021-09-06] MEDS ORDERED: LISI40TA9 PO (09:50)
[2021-09-06] MEDS ORDERED: ASPI325T32 PO (09:50)
[2021-09-06] MEDS ORDERED: PANT40TA52 PO (09:50)
[2021-09-06] MEDS ORDERED: EMPA25TA PO (09:50)
[2021-09-06] MEDS ORDERED: LOPE-134 PO (09:53)
[2021-09-06] MEDS ORDERED: INUL1TAB4 PO (09:53)
[2021-09-06] MEDS ORDERED: NICOTINE 21 MG (NICODERM) PATCH TD ONE (14:30)
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
[2021-09-06 19:17] VITALS: BP 134/69
[2021-09-06 19:49] VITALS: BP 139/72
[2021-09-06] MEDS ORDERED: methylPREDNISolone 125 MG (Solu-MEDROL) VIAL IV SCH (21:00)
[2021-09-07 00:26] VITALS: BP 124/81
[2021-09-07 04:16] VITALS: BP 109/68
[2021-09-07 05:31] LABS: BASOPHILS % (AUTO) 0 % (0-10); EOSINOPHILS % (AUTO) 0 % (0-10); HEMATOCRIT 43 % (35-52); LYMPHOCYTES % (AUTO) 4 % (12-44); MEAN CORPUSCULAR HEMOGLOBIN 28 pg (25-34); MEAN CORPUSCULAR HGB CONC 33 g/dL (32-36); MEAN CORPUSCULAR VOLUME 87 fL (80-99); MEAN PLATELET VOLUME 11.5 fL (9.0-12.2); MONOCYTES # (AUTO) 0.3 10^3/uL (0.0-1.0); MONOCYTES % (AUTO) 1 % (0-12); NEUTROPHILS # (AUTO) 24.7 10^3/uL (1.8-7.8); NEUTROPHILS % (AUTO) 94 % (42-75); PLATELET COUNT 287 10^3/uL (130-400); WHITE BLOOD COUNT 26.2 10^3/uL (4.3-11.0)
[2021-09-07 05:56] LABS: ALBUMIN 3.8 GM/DL (3.2-4.5); BILIRUBIN,TOTAL 0.3 MG/DL (0.1-1.0); CALCIUM 10.1 MG/DL (8.5-10.1); CREATININE SERUM 1.84 MG/DL (0.60-1.30); POTASSIUM 4.5 MMOL/L (3.6-5.0); TOTAL PROTEIN 6.6 GM/DL (6.4-8.2)
[2021-09-07 05:57] LABS: LYMPHOCYTES % (MANUAL) 2 %; MONOCYTES % (MANUAL) 2 %; NEUTROPHILS % (MANUAL) 96 %; RBC MORPH NORMAL
[2021-09-07] MEDS: inSUlin ASPART (NovoLOG) 1 UNIT/0.01 ML (CHARGE PER UNIT) SC SCH ×2 (06:17→12:26)
[2021-09-07] MEDS: RT--FLUTICASONE/SALMETEROL 113-14 (AIRDUO RespiCLICK) IH SCH (06:49)
[2021-09-07] MEDS ORDERED: predniSONE 20 MG TAB PO SCH (07:00)
[2021-09-07 07:33] VITALS: BP 129/64
[2021-09-07] MEDS ORDERED: ENOXAPARIN INJECTION 30 MG/0.3 ML SYR SC SCH (08:00)
[2021-09-07] MEDS ORDERED: RT-ALBUTEROL/IPRATROPIUM 3 ML (DUONEB) VIAL INH SCH (08:00)
[2021-09-07] MEDS: DOCUSATE SODIUM 100 MG (COLACE) CAP PO SCH (08:16)
[2021-09-07] MEDS: PANTOPRAZOLE 40 MG (PROTONIX) TAB PO SCH (08:16)
[2021-09-07] MEDS: lisINopril 10 MG (PRINIVIL) TABLET PO SCH (08:17)
[2021-09-07] MEDS: SENNOSIDES 8.6 MG (SENOKOT) TAB PO SCH (08:44)
[2021-09-07] MEDS ORDERED: NICOTINE 21 MG (NICODERM) PATCH TD SCH (09:00)
[2021-09-07] MEDS ORDERED: lisINopril 40 MG (PRINIVIL) TABLET PO SCH (09:00)
[2021-09-07] MEDS ORDERED: GLIM1TAB4 PO (10:01)
[2021-09-07] MEDS ORDERED: EMPA25TA PO (10:01)
[2021-09-07] MEDS ORDERED: ATOR20TA66 PO (10:01)
[2021-09-07] MEDS ORDERED: RT-ALBUINH INH (10:01)
[2021-09-07] MEDS ORDERED: ASPI325T32 PO (10:01)
[2021-09-07] MEDS ORDERED: PRED10TA22 PO (10:01)
[2021-09-07] MEDS ORDERED: PANT40TA52 PO (10:01)
[2021-09-07] MEDS ORDERED: LISI40TA9 PO (10:01)
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
[2021-09-07 11:17] VITALS: BP 131/65
[2021-09-07 13:34] VITALS: BP 131/65
[2021-09-08] MEDS ORDERED: NICOTINE PATCH REMOVAL TP SCH (08:59)
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
== END 2021-09-07 13:35 | disposition home or self-care (01) | DRG 191 ==
LOC: EDUNIT# 04:34 → ER 04:36 → ICU 05:35 → 4TH 09-06 18:24
PROVIDERS: ADMIT Internal Medicine; ATTEND Internal Medicine
DX: J44.1 Chronic obstructive pulmonary disease with (acute) exacerbation (principal); N17.9 Acute kidney failure, unspecified; T59.811A Toxic effect of smoke, accidental (unintentional), initial encounter; J70.5 Respiratory conditions due to smoke inhalation; F17.210 Nicotine dependence, cigarettes, uncomplicated; X00.1XXA Exposure to smoke in uncontrolled fire in building or structure, initial encounter; I10 Essential (primary) hypertension; E11.9 Type 2 diabetes mellitus without complications; D72.829 Elevated white blood cell count, unspecified; T38.0X5A Adverse effect of glucocorticoids and synthetic analogues, initial encounter; F12.90 Cannabis use, unspecified, uncomplicated; E78.00 Pure hypercholesterolemia, unspecified; K21.9 Gastro-esophageal reflux disease without esophagitis; G43.909 Migraine, unspecified, not intractable, without status migrainosus; M19.90 Unspecified osteoarthritis, unspecified site; F41.9 Anxiety disorder, unspecified; R09.02 Hypoxemia; Z79.82 Long term (current) use of aspirin; Z79.899 Other long term (current) drug therapy
CPT/HCPCS: 36415; 71045; 80053; 80306; 81000; 82375; 82947; 83880; 85007; 85025; 85027; 87636; 93041; 94640; 94760; 96374; G0378